=== PATIENT | male | born 1950 | race Caucasian/White ===

== ENCOUNTER 2025-04-04 10:30 | Emergency (ER) | payer MEDICARE, SELFPAY ==
--- OUTSIDE RECORDS SUMMARY | 2016-08-20 05:55 | XMS_ITS | Continuity of Care Document ---
Author Organization [facility] Address [address] [facility] [address] [place] [address] Phone Care Team Providers Care Customs Investigator Name Role Phone Len Morrissey MD Unavailable Unavailable Allergies, Adverse Reactions, Alerts Substance Reaction Status Criticality PENICILLIN Active No Information Medications Medication Instructions Dosage Effective Dates (start - stop) Status Comments pravastatin 20 mg tablet take 2 tablet by oral route every day 40 MG - Active Aspir-81 81 mg tablet,delayed release take 1 tablet by oral route every day - Active Lipitor 20 mg tablet take 1 tablet by or al route every day 20 MG - Active lisinopril 5 mg tablet take 1 tablet by oral route every day 5 MG - Active Procedures Procedure Date YAG PC AFTER CATARACT LASER SURGERY AFTER CATARACT LASER SURGERY EYE EXAM & TREATMENT CATARACT SURG W/IOL, 1 STAGE CATARACT SURG W/IOL, 1 STAGE NON MED NEC IOL PREOP OFFICE/OUTPATIENT VISIT, NEW OPHTHALMIC BIOMETRY OPHTHALMIC BIOMETRY Advance Directives Directive Yes / No Effective Date File Name No Information Encounters Encounter Description Practice Location Reason(s) For Visit Diagnoses Date Provider Providers Copied on Encounter [facility], [address] [facility] [address], [place], [place], [id number], [place] tel:[phone] [facility] No Information 7 Ghanshyam Harrington. [address] [facility], [address], [place], [place], [id number] , [place]. tel: [phone] Referring Provider: Len Espinal, [address], [place], [address] . tel:[phone] [facility], [address] [place] [address], [id number], tel:[phone] [facility] No Information 7 Ghanshyam Harrington. [address], [address], [place], [place], [id number] , [place]. tel:[phone] Referring Provider: Len Espinal, [address], [place], [address] . tel:[phone] [facility], [address] [place] [address], [id number], tel:[phone] [facility] blurry vision (chief complaint) Tear film insufficiency of bilateral lacrimal glandsPure hypercholeste rolemiaPresen ce of intraocular lensPresbyopi aHypertension Other secondary cataract, bilateralDerm atochalasis of right upper eyelidDermato chalasis of left upper eyelid 7 Ghanshyam Harrington. [address], [address], [place], [place], [id number] , [place]. tel:[phone] Referring Provider: Len Espinal, [address], [place], [address] . tel:[phone] [facility], [address] [place] [address], [id number], [place] tel:[phone] [facility] No Information 4 Ghanshyam Harrington. [address], [address], [place], [place], [id number] , [place]. tel:[phone] Referring Provider: Len Espinal, [address], [place], [address] . tel:[phone] [facility], [address] [place] [address], [id number], [place] tel:[phone] [facility] [place] No Information Ghanshyam Harrington. [address], [address], [place], [place], [address] , . tel:[phone] Referring Provider: Len Espinal, [address], [place], [address] . tel:[phone] [facility], [address] [place] [address], [id number], tel:[phone] [facility] No Information 4 Ghanshyam Harrington. [address], [address], [place], [place], [id number] , . tel:[phone] Referring Provider: Len Espinal, [address], [place], [address] . tel:[phone] OFFICE/OUTPA TIENT VISIT, [facility], [address] [place] [address], [place], [place], [id number], tel:[phone] [facility] No Information 4 Ghanshyam Harrington. [address], [address], [place], [place], [id number] , . tel:[phone] Referring Provider: Len Espinal, [address], [place], [address] . tel:[phone] Family History Family Member Type Diagnosis Age At Onset No Information Payers Payer name Insurance type Covered democrat ID Authoriza tion(s) Medicare Complete Advantage [facility] [id number] Social History Type Description Quantity Date Captured Comments Sex Male Smoking Status No Information Chief Complaint And Reason For Visit No Information Reason For Referral Reason For Referral No Information History Of Present Illness Encounter Date Complaint History Of Prese nt Illness blurry vision Patient presents for blurry VA OU OS>OD gradually worsening over the last 6 months. The symptom is constant and the condition is moderate. Patient states he is looking through a constant fog. Patient referred by Dr. Waller out of [facility] for YAG PC evaluation OU. Functional Status Date Functional Assessmen t No Information Instructions Date Instruction Additional Infor rose RTO prn Related to Hyper tension Impression/Plan - No evidence of hypertensive retinopathy. Will continue to observe. Related to Hypertension Impression/Plan - Di scussed diagnosis in detail with patient. Discussed treatment options with patient. Schedule Yag OU OS then OD. Related to Other secondary cataract, bilateral Impression/Plan - Di scussed diagnosis in detail with patient. No treatment is required at this time. Will continue to observe condition and or symptoms. Related to Dermatochalasis of right upper eyelid Impression/Plan - Di scussed diagnosis in detail with patient. No treatment is required at this time. Will continue to observe condition and or symptoms. Related to Dermatochalasis of left upper eyelid Impression/Plan - Di scussed diagnosis in detail with patient. Discussed treatment options with patient. Patient instructed to use artificial tears as needed. Will continue to observe condition and or symptoms. Related to Tear film insufficiency of bilateral lacrimal glands Impression/Plan Related to Hyper tension Follow up - RTO prn Related to H ypertension Impression/Plan - Per Dr. Ira jorge Related to Presbyopia Impression/Plan - St able. Will continue to observe. Related to Presence of intraocular lens Impression/Plan - Co ntinue care with PCP. Related to Pure hypercholesterolemia Assessments Type Assessment Date No Information Patient Care Teams Name Effective Dates (start - stop) Status Members No Information
--- OUTSIDE RECORDS SUMMARY | 2025-04-03 09:00 | XMS_ITS | Encounter Summary ---
Author Organization [facility] Address [address] [place] [address] Care Team Providers Care Therapeutic Recreation Assistant Name Role Phone Hakeem Connelly MD Primary Care Provider [phone] Reason for Referral * Eval and Treat (5-7 Days) - Open Specialty Diagnoses / Procedures Referred By Contac t Referred To Contact Hematology and Oncology Diagnoses Iron deficiency anemia, unspecified iron deficiency anemia type Procedures IL OFFICE/OUTPATIENT ESTABLISHED MOD MDM 30 MIN IL OFFICE/OUTPATIENT NEW MODERATE MDM 45 MINUTES Hakeem Connelly MD [address] [place] [address] Phone: tel: fax: Cain Mcduffie DO [address] [place] [address] Phone: tel: fax: Referral ID Status Reason Start Date Expiration Date Visits Re quested Visits Authorized [id number] Open 04/03/2025 04/03/2026 1 1 * Eval and Treat (5-7 Days) - Open Specialty Diagnoses / Procedures Referred By Contac t Referred To Contact Cardiovascular Disease / Cardiology Diagnoses Syncope, unspecified syncope type Procedures IL OFFICE/OUTPATIENT ESTABLISHED MOD MDM 30 MIN IL OFFICE/OUTPATIENT NEW MODERATE MDM 45 MINUTES Hakeem Connelly MD [address] [place] [address] Phone: tel: fax: Cliff Contreras MD [address] [place] [address] Phone: tel: fax: Referral ID Status Reason Start Date Expiration Date V isits Requested Visits Authorized [id number] Open CRS to Schedule 04/03/2025 04/03/2026 1 1 Reason for Visit * Reason Comments ER Follow Up Pt passed out a few times before he went to the ER. , states he was having dizziness, chest tightness, so on 03/26 he went to the ER Encounter Details Date Type Department Care Team (Late st Contact Info) Description 04/03/2025 9:00 AM CDT Office Visit [facility] Internal Medicine - [address] [place] [address] Hakeem Connelly MD [address] [place] [address] Syncope, unspecified syncope type (Primary Dx); Crohn's disease of small intestine with complication; Iron deficiency anemia, unspecified iron deficiency anemia type Social History Tobacco Use Types Packs/Day Years Used Date Smoking Tobacco: Never Smokeless Tobacco: Never Alcohol Use Standard Drinks/Week Comments Yes 0 (1 standard drink = 0.6 oz pur e alcohol) very little Food Insecurity Answer Date Recorded Do you find you are eating l ess than you should because you can t pay for food? No 03/26/2025 Transportation Needs Answer Date Record ed Have you gone without health care because you didn t have a way to get there? Or worry about transportation for future doctor visits, mixing picker tender medication, etc.? No 2024 Housing Stability Answer Date Recorded Do you worry you won t have a steady place to sleep or struggle to pay rent or mortgage? No 03/26/2025 Utility Needs Answer Date Recorded Do you have difficulty payin g for utility costs (electric, water or gas bills)? No 03/26/2025 Medication Needs Answer Date Recorded Have you skipped taking medi cation due to cost or worry you can t afford new medications? No 03/26/2025 Feeling Safe Answer Date Recorded Are you in a relationship wi th someone who hurts you emotionally and/or physically? No 03/26/2025 Food Insecurity Answer Date Recorded Patient needs follow up regardin 2024 Transportation Needs Answer Date Record ed Patient needs follow up regardin 2024 Housing Stability Answer Date Recorded Social/Environmental Concerns No concerns Utility Needs Answer Date Recorded Patient needs follow up regardin 2024 Sex and Gender Information Value Date Recorded Sex Assigned at Not on file Legal Sex Male 4:59 AM CLOUD DEVELOPER Gender Identity Not on file Sexual Orientation Not on file Occupation Industry Job Start Date Job End Date Not on file Not on file Not on file Not on file retired Not on file Not on file Not on file documented as of this encounter Last Filed Vital Signs Vital Sign Reading Time Taken Comments Blood Pressure 124/60 04/03/2025 8:47 AM CDT Pulse 76 04/03/2025 8:47 AM CDT Temperature - - Respiratory Rate - - Oxygen Saturation 98% 04/03/2025 8:47 AM CDT Inhaled Oxygen Concentration - - Weight 97.5 kg (215 lb) 04/03/2025 8:47 AM CDT Height 177.8 cm (5' 10 ) 04/03/2025 8:47 AM CDT Body Mass Index 30.85 04/03/2025 8:47 AM CDT documented in this encounter Progress Notes * Hakeem Connelly MD - 04/03/2025 9:02 AM CDT SUBJECTIVE: Abdoul Patel is a 74 y.o. male here for follow up of Chief Complaint Patient presents with ER Follow Up Pt passed out a few times before he went to the ER. , states he was having dizziness, chest tightness, so on 03/26 he went to the ER HPI: 1.recurrent syncope: 3rd episode, no documentation of sinus pause or bradycardia. Hgb is low despite iron, BP at goal, no BB. 2.iron def anemia: on iron BID for 6 months, still anemic. Poor absorption from Crohns?? Bone marrow issue? Hematology consult Review of Systems History obtained from the patient General: negative for weight changes, fever Psychological: negative for anxiety or depressive symptoms Ophthalmic: negative for visual changes, ocular redness or discharge ENT: negative for nasal congestion, drainage or bleeding, sore throat, dysphagia or ear pain Allergy and Immunology: negative for itchy eyes, nasal congestion, sneezing, lymphadenopathy Hematological and Lymphatic: negative for swollen glands or abnormal bleeding Endocrine: negative for polyuria/polydipsia or new changes in weight Breast: negative for breast lumps or pain Respiratory: negative for cough, shortness of breath, or wheezing Cardiovascular: negative for chest pain or dyspnea on exertion Vascular: neg for edema Gastrointestinal: negative for reflux, abdominal pain, change in bowel habits, or black or bloody stools Genito-Urinary: negative for dysuria, trouble voiding, or hematuria Musculoskeletal: neg for joint pain, negative for back pain, neck pain or joint pain. Neurological: negative for TIA or stroke symptoms Dermatological: negative for skin rashes or unusual skin lesions Problem, Medication, Allergy, Past Medical, Family, Surgical and Social Histories were reviewed. Please review in electronic medical records. Current Outpatient Medications on File Prior to Visit Medication Sig Dispense Refill atorvastatin (LIPITOR) 40 mg tablet Take 1 Tablet (40 mg) by mouth daily. 100 Tablet 3 sertraline (ZOLOFT) 100 mg tablet Take 1 Tablet (100 mg) by mouth daily. 100 Tablet 3 tamsulosin (FLOMAX) 0.4 mg capsule Take 1 Capsule (0.4 mg) by mouth daily. 100 Capsule 3 lisinopriL (PRINIVIL) 10 mg tablet TAKE 1 TABLET BY MOUTH DAILY 100 Tablet 2 iron,carb/vit C/vit B12/folic (IRON 100 PLUS ORAL) Take by mouth. acetaminophen-codeine (TYLENOL #3) 300-30 mg tablet Take 1 Tablet by mouth every 6 hours as needed for Pain. aspirin (ECOTRIN EC) 81 mg Tablet, Delayed Release (E.C.) Take 1 Tablet (81 mg) by mouth daily. uymcgcahwvpcp-smisswdf-xozjvt (CENTRUM SILVER) Tablet Take 1 Tablet by mouth daily. acetaminophen ER 650 mg tablet,extended release Take 650 mg by mouth every 6 hours as needed for Pain. No current facility-administered medications on file prior to visit. Allergies Allergen Reactions Penicillins Unknown Past Medical History: Diagnosis Date Anemia Chest pain 09/23/2022 Coronary artery disease Hearing loss HTN (hypertension) Hyperlipidemia Obstructive sleep apnea uses cpap Auto 8-18 01/12/25 Nasal pillows Post-operative nausea and vomiting Family History Problem Relation Name Age of Onset Heart Disease Father Heart Attack Father 57 of [place] No Known Problems Mother Past Surgical History: Procedure Laterality Date HX COLONOSCOPY W/ BIOPSIES N/A 10/12/2022 COLONOSCOPY WITH BIOPSY performed by Hernandez Handley MD at [facility] HX COLONOSCOPY W/ BIOPSIES N/A 09/26/2023 COLONOSCOPY WITH BIOPSY performed by Hernandez Handley MD at [facility] HX COLONOSCOPY W/ BIOPSIES N/A 01/14/2025 COLONOSCOPY WITH BIOPSY performed by Chayito Rick MBBS at [facility] 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 HX HEART CATHETERIZATION 2011 No stents HX HERNIA REPAIR 02/17/2012 Umbilical--Dr Heaton HX KNEE SURGERY HX PTCA IL CATH PLMT L HRT & ARTS W/NJX & ANGIO IMG S&I N/A 05/11/2024 Left heart cath performed by Saroj Jones MD at [facility] INVASIVE CARDIOLOGY IL COLONOSCOPY FLX DX W/COLLJ SPEC WHEN PFRMD N/A 02/09/2022 COLONOSCOPY performed by Hernandez Handley MD at [facility] IL COLSC FLX W/RMVL OF TUMOR POLYP LESION SNARE TQ N/A 02/09/2016 COLONOSCOPY WITH POLYPECTOMY performed by Caroline Anna MD at [facility] OR [address] IL EGD TRANSORAL BIOPSY SINGLE/MULTIPLE N/A 09/23/2022 ESOPHAGOGASTRODUODENOSCOPY WITH BIOPSY performed by Hernandez Handley MD at [facility] IL EGD TRANSORAL BIOPSY SINGLE/MULTIPLE N/A 01/14/2025 ESOPHAGOGASTRODUODENOSCOPY WITH BIOPSY performed by Chayito Rick MBBS at [facility] IL ENDOSCOPY UPPER SMALL INTESTINE N/A 10/12/2022 SMALL BOWEL ENTEROSCOPY performed by Hernandez Handley MD at [facility] IL REPAIR FIRST ABDOMINAL WALL HERNIA N/A 11/24/2020 HERNIA INCISIONAL REPAIR performed by Darrius Song MD at [facility] OR OBJECTIVE: BP 124/60 Pulse 76 Ht 5' 10 (1.778 m) Wt 97.5 kg (215 lb) SpO2 98% BMI 30.85 kg/m?? General Appearance: alert, in no distress, cooperative, Head: atraumatic, Normocephalic, without obvious abnormality, Eyes: conjunctivae/corneas clear. PERRL, EOM's intact., Ears: normal TM's and external ear canals bilaterally Nose: Nares normal. Septum midline. Mucosa without anomalies. No drainage or sinus tenderness., Throat: Lips, mucosa (moist), and tongue within normal limits. Neck: supple, symmetrical, trachea midline, no adenopathy, thyroid: not enlarged, symmetric, no tenderness/mass/nodules, no carotid bruit and no JVD, Heart: regular rate and rhythm, S1, S2 normal, no murmur, click, rub or gallop, Chest Wall: no tenderness, Lungs: clear to auscultation bilaterally, normal respiratory effort, Abdomen: Soft, non-tender. Bowel sounds normal. No masses, no organomegaly., Back: symmetric, no curvature. ROM normal. No CVA tenderness. Extremities: extremities normal, atraumatic, no cyanosis or edema Pulses: present 1+ Neurologic: Alert and oriented X 3, normal strength and tone. Normal coordination and gait, Skin: Skin color, texture, turgor normal. No rashes or lesions Lymph Nodes: Cervical, supraclavicular, and axillary nodes normal. Diagnostics: Lab Results Component Value Date WBC 9.1 03/26/2025 HGB 9.2 (L) 03/26/2025 HCT 30.2 (L) 03/26/2025 PLT 275 03/26/2025 MCV 90.7 03/26/2025 Lab Results Component Value Date NA 134 (L) 03/26/2025 K 4.4 03/26/2025 CL 101 03/26/2025 CO2 21 (L) 03/26/2025 CA 9.4 03/26/2025 BUN 17 03/26/2025 CREAT 1.14 03/26/2025 GLUCOSE 117 (H) 03/26/2025 TOTALPROTEIN 6.7 02/25/2025 TOTALPROTEIN 5.7 (L) 01/14/2025 ALBUMIN 4.4 02/25/2025 ALBUMIN 3.6 01/14/2025 BILITOTAL 0.4 02/25/2025 ALKPHOS 69 02/25/2025 ALKPHOS 53 01/14/2025 AST 21 02/25/2025 ALT 22 02/25/2025 ANIONGAP 12 03/26/2025 BCRATIO SEE NOTE: 02/25/2025 Lab Results Component Value Date CHOLTOT 123 02/25/2025 CHOLTOT 91 09/23/2022 HDL 52 02/25/2025 HDL 44 09/23/2022 LDLCALC 48 02/25/2025 LDLCALC 25 09/23/2022 TRIGLYCERIDE 143 02/25/2025 TRIGLYCERIDE 111 09/23/2022 Lab Results Component Value Date HGBA1C 6.0 (H) 02/29/2024 Lab Results Component Value Date TSH 6.35 (H) 08/20/2024 TSH 2.94 09/23/2022 ASSESSMENT: ICD-10-CM ICD-9-CM 1. Syncope, unspecified syncope type R55 780.2 2. Crohn's disease of small intestine with complication K50.019 555.0 3. Iron deficiency anemia, unspecified iron deficiency anemia type D50.9 280.9 PLAN: 1.refer to Diane 2.on entevo very well controlled 3.on 325 mg iron OTC BID, ferritn 11 and hgb 9.2 Follow up in 3 months Hakeem Connelly MD documented in this encounter Plan of Treatment Upcoming Encounters Date Type Department Care Team (Latest Contact Info) Description 04/08/2025 10:00 AM CDT Hospital Encounter [facility] [address] [place] [address] Hernandez Handley MD [address] [place] [address] 11, Mob Crohn's disease of colon without complication ([facility]/HCC) 05/28/2025 9:40 AM CLOUD DEVELOPER Appointment [facility] Internal Medicine - [address] [place] [address] Hakeem Connelly MD [address] [place] [address] 06/06/2025 10:00 AM CLOUD DEVELOPER Office Visit [facility] G[facility]enterology - [address] [place] [address] Leighton Chaudhary FNP [address] [place] [address] 08/27/2025 10:40 AM CDT Appointment [facility] Internal Medicine - [address] [place] [address] Hakeem Connelly MD [address] [place] [address] 09/30/2025 10:30 AM CDT Office Visit [facility] [place] [address] [place] [phone] Cliff Contreras MD [address] [place] [address] 11/14/2025 10:45 AM CDT [facility] Visit [facility] Pulmonology and Sleep Med - [address] [place] [address] Tevin Gómez MD [address] [place] [address] Scheduled Referrals Name Type Priority Associated Diagnoses Orde r Schedule AMB REFERRAL TO CARDIOLOGY Outpatient Referral Routine Syncope, unspecified syncope type Ordered: 04/03/2025 AMB REFERRAL TO ONCOLOGY Outpatient Referral Routine Iron deficiency anemia, unspecified iron deficiency anemia type Ordered: 04/03/2025 documented as of this encounter Visit Diagnoses Diagnosis Syncope, unspecified syncope type- Primary Crohn's disease of small intestine with complication Regional enteritis of small intestine Iron deficiency anemia, unspecified iron deficiency anemia type documented in this encounter Care Teams Therapeutic Recreation Assistant Relationship Specialty Start Date End Date Hakeem Connelly MD [address] [place] [address] PCP - General 12/27/02 documented as of this encounter
[2025-04-04] VITALS (13 sets, daily range): BP systolic 96–133; BP diastolic 47–78; PULSE 55–62; RESP 14–17; TEMP 36.6–36.8; O2SAT 96–100; BMI 30.2
--- NOTE | 2025-04-04 10:43 | XR_ITS ---
WS: [id number] XR chest 1V portable [id number] REASON FOR EXAM: Syncope FINDINGS: Mild tortuosity and ectasia of the ascending and descending thoracic aorta and aortic arch. The heart is at the upper limits of normal. Calcified granulomatous disease bilaterally. No acute pulmonary parenchymal or pleural abnormality is identified. (There is a focal band of lucency projected over the medial left hemidiaphragm and lower left heart which is felt to represent artifact.) Moderate degenerative spondylosis in the thoracic spine. 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 XR/XR chest 1V portable [id number] IMPRESSION: No acute chest abnormality.
[2025-04-04 11:01] LABS: Hematocrit 24.5 % (37-53); Hemoglobin 7.30 g/dL (11.27-16.99); Mean Corpuscular HGB Conc 29.8 g/dL (30-55); Mean Corpuscular Hemoglobin 27.5 pg (27-33); Mean Corpuscular Volume 92.5 fl (82-101); Nucleated Red Blood Cells % 0 %; Platelet Count 203 10^3/cmm (157-399); Red Blood Count 2.65 10^6/uL (3.85-5.65); White Blood Count 8.53 10^3/uL (3.29-11.43)
--- NOTE | 2025-04-04 11:08 | ECG_ITS ---
[facility] Test Date: 2025-04-04 Pat Name: Demetris Patel Department: Room: Gender: Male Pulp Drier: : 1950 Requested By: Yogesh Norris Order Number: [id number] Damon MD: Tong Paul M.D. Measurements Intervals [place] Rate: 57 P: 75 [place]: 180 QRS: 9 QRSD: 89 T: 0 QT: 428 QTc: 419 Interpretive Statements SINUS BRADYCARDIA No previous ECG available for comparison Electronically Signed On 04-06-2025 12:03:35 CDT by Tong Paul M.D. [email or web address]
[2025-04-04 11:19] LABS: Troponin(5th) Baseline 17 ng/L (0-15)
[2025-04-04 11:22] LABS: Alanine Aminotransferase 15 U/L (0-41); Albumin Level 4.0 g/dL (3.5-5.2); Alkaline Phosphatase 66 U/L (40-130); Anion Gap 19.5 (5-19); Aspartate Amino Transferase 16 U/L (0-40); Blood Urea Nitrogen 25 mg/dL (8-23); Calcium 8.8 mg/dL (8.5-10.5); Carbon Dioxide 19 mmol/L (22-29); Chloride 102 mmol/L (98-107); Creatinine Clr Calc Pharmacy 68.4027; Globulin 1.7 g/dL (1.3-4.6); Glucose 128 mg/dL (65-115); Osmolality Calculated 288 mOsm/kg (285-295); Potassium 4.5 mmol/L (3.5-5.1); Sodium 136 mmol/L (136-145); Total Protein 5.7 g/dL (6.6-8.7)
--- OUTSIDE RECORDS SUMMARY | 2025-04-04 11:37 | XMS_ITS | Encounter Summary ---
Author Organization [employer] Address [address] [place] [address] Care Team Providers Care Nitroglycerin Distributor Name Role Phone Hakeem Connelly MD Primary Care Provider [phone] Encounter Details Date Type Department Care Team (Late st Contact Info) Description 04/02/2025 External Device Data [facility] ABSTRACTION Provider, Abstract NO ADDRESS ON FILE Social History Tobacco Use Types Packs/Day Years [...] worry about transportation for future doctor visits, berry picker medication, etc.? No 2024 Housing Stability Answer [...] on file Legal Sex Male 4:59 AM CASINO RUNNER Gender Identity Not on file Sexual Orientation Not on file Occupation Industry Job Start Date Job End Date Not on file Not on file Not on file Not on file retired Not on file Not on file Not on file documented as of this encounter Plan of Treatment Upcoming Encounters Date Type Department Care Team (Latest Contact Info) Description 04/08/2025 10:00 AM CDT Hospital Encounter [facility] [address] [place] [address] Hernandez Handley MD [address] [place] [address] Mob Crohn's disease of colon without complication ([facility]) 05/28/2025 9:40 AM CASINO RUNNER Appointment [facility] Internal Medicine - [address] [place] [address] Hakeem Connelly MD [address] [place] [address] 06/06/2025 10:00 AM CASINO RUNNER Office Visit [facility] Gastroenterology - [address] [place] [address] Leighton Chaudhary FNP [address] [place] [address] 08/27/2025 10:40 AM CDT Appointment [facility] Internal Medicine - [address] [place] [address] Hakeem Connelly MD [address] [place] [address] 09/30/2025 10:30 AM CDT Office Visit [facility] Heart and Vascular - [place] [address] [place] [address] Cliff Contreras MD [address] [place] [address] 11/14/2025 10:45 AM CDT Office Visit [facility] Pulmonology and Sleep Med - [address] [place] [address] Tevin Gómez MD [address] [place] [address] documented as of this encounter Visit Diagnoses Not on filedocumented in this encounter Care Teams Nitroglycerin Distributor Relationship Specialty Start Date End Date Hakeem Connelly MD [address] [place] [address] PCP - General 12/27/02 documented as of this encounter
--- OUTSIDE RECORDS SUMMARY | 2025-04-04 11:37 | XMS_ITS | Encounter Summary ---
Author Organization [facility] Address 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 Gender Identity Not on file Sexual Orientation Not on file documented as of this encounter Plan of Treatment Upcoming Encounters Date Type Department Care Team (Latest Contact Info) Description 04/08/2025 10:00 AM CDT Hospital Encounter [facility] [address] [place] [address] Hernandez Handley MD [address] [place] [address] 11, Mob Crohn's disease of colon without complication (CMS/HCC) 05/28/2025 9:40 AM PRESSURE TESTER OPERATOR Appointment [facility] Internal Medicine - [address] [place] [address] Hakeem Connelly MD [address] [place] [address] 06/06/2025 10:00 AM PRESSURE TESTER OPERATOR Office Visit [facility] Gastroenterology - [address] [place] [address] Leighton Chaudhary FNP [address] [place] [address] 08/27/2025 10:40 AM CDT Appointment [facility] Internal Medicine - [address] [place] [address] Hakeem Connelly MD [address] [place] [address] 09/30/2025 10:30 AM CDT Office Visit [facility] Heart and Vascular - [place] [address] [phone] Cliff Contreras MD [address] [place] [address] 11/14/2025 10:45 AM CDT Office Visit [facility] Pulmonology and Sleep Med - [address] [place] [address] Tevin Gómez MD [address] [place] [address] documented as of this encounter Visit Diagnoses Diagnosis Derangement of lateral meniscus, unspecified- Primary documented in this encounter Additional Health Concerns Infection Onset Date Last Indicated Resolved Time R/O COVID-19 03/07/2020 03/07/2020 03/08/2020 3:00 PM CDT R/O COVID-19 09/23/2022 09/23/2022 09/23/2022 9:58 AM CDT documented as of this encounter Care Teams Collections And Archives Director Relationship Specialty Start Date End Date Hakeem Connelly MD [address] [place] [address] PCP - General 12/27/02 documented as of this encounter
--- OUTSIDE RECORDS SUMMARY | 2025-04-04 11:37 | XMS_ITS | Clinical Summary ---
Author Organization [facility] [employer] Address [address] [place] [address] Care Team Providers Care Supervisor [employer] Name Role Phone Hakeem Connelly MD Primary Care Provider [phone] Source Comments [facility] [employer],non-owned Affiliates and Associated Physician Practices is amultiple site organization consisting of ambulatory clinics and hospital sitesin [place], [place], [place]. This disclosure is being madepursuant to the Care Everywhere program and may not contain all information available regarding this patient. Last updated 18.[facility] [employer] Allergies Active Allergy Reactions Criticality Noted Date Comments Penicillins Unknown 09/27/2011 Medications * Be aware that medications may not be up to date on this document. Alwaysverify current medications with the patient. pravastatin (PRAVACHOL) 20 MG tablet Take 20 mg by mouth at bedtime. Active aspirin EC (ECOTRIN) 81 MG tablet Take 81 mg by mouth once daily. Active lisinopril-hydro chlorothiazide (PRINZIDE; ZESTORETIC) 20-12.5 MG tablet Take 1 Tab by mouth once daily. Active naproxen (NAPROSYN) 250 MG tablet Take 500 mg by mouth once daily. Active multivitamin daily (THERAGRAN) tablet Take 1 Tab by mouth daily with food. 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 Gender Identity Not on file Sexual Orientation Not on file Last Filed Vital Signs Vital Sign Reading Time Taken Comments Blood Pressure 116/68 09/28/2011 3:15 PM CDT Pulse 69 09/28/2011 3:15 PM CDT Temperature 37.4 C (99.3 F) 09/28/2011 11:17 AM CDT Respiratory Rate 15 09/28/2011 3:15 PM CDT Oxygen Saturation 98% 09/28/2011 3:15 PM CDT Inhaled Oxygen Concentration - - Weight 102.1 kg (225 lb) 09/27/2011 12:21 PM CDT Height 177.8 cm (5' 10 ) 09/27/2011 12:21 PM CDT Body Mass Index 32.28 09/27/2011 12:21 PM CDT Plan of Treatment Health Maintenance Due Date Last Done Comments COLOGUARD (AGES 45-75) - COL ON CA SCREENING 1950 COLON MONITORING 1950 COLONOSCOPY - COLON CA SCREENING 1950 CT COLONOGRAPHY - COLON CA SCREENING 1950 Colorectal Cancer Screening 1950 FIT - COLON CA SCREENING 1950 FLEX SIG - COLON CA SCREENING 1950 HEPATITIS C SCREENING 10/08/1968 DTAP/TDAP/TD VACCINES (1 - Tdap) 1969 PNEUMOCOCCAL VACCINE 50+ (1 of 1 - PCV) 2000 ZOSTER VACCINE (1 of 2) 2000 DEPRESSION SCREENING 06/20/2024 COVID-19 VACCINE (1 - 2023-2 5 season) 2025 INFLUENZA VACCINE (#1) 2025 Respiratory Syncytial Virus (RSV) Vaccine Pt: or over 60 yrs (1 - 1-dose 75+ series) 2025 HEPATITIS B VACCINE Aged Out No longe r eligible based on patient's age to complete this topic HIB VACCINE Aged Out No longer eligi ble based on patient's age to complete this topic HPV VACCINE Aged Out No longer eligi ble based on patient's age to complete this topic MENINGOCOCCAL (Group B) VACC INE SHARED DECISION-MAKING Aged Out No longer eligibl e based on patient's age to complete this topic MENINGOCOCCAL GROUPS A/C/Y/W VACCINE Aged Out No longer eligible b ased on patient's age to complete this topic Care Teams Supervisor [employer] Relationship Specialty Start Date End Date Hakeem Connelly MD [address] [place] [address] PCP - General 09/27/11
--- OUTSIDE RECORDS SUMMARY | 2025-04-04 11:37 | XMS_ITS | Encounter Summary ---
Author Organization [facility] Address [address] [place] [address] Care Team Providers Care Boilermaker Welder Name Role Phone Hakeem Connelly MD Primary Care Provider [phone] Reason for Visit * Reason Comments Hospital Follow Up Encounter Details Date Type Department Care Team (Late st Contact Info) Description 03/28/2025 Telephone [facility] Internal Medicine - [address] [place] [address] Hakeem Connelly MD [address] [place] [address] Hospital Follow Up Social History Tobacco Use Types Packs/Day Years [...] worry about transportation for future doctor visits, waste picker medication, etc.? 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 Topic: Established Patient Care >> Mar 28, 2025 3:36 PM Chriss Parsons wrote: Is the patient established with a [facility] provider? Yes, select appropriate option in Discharge Facility SmartList Caller Name: Abdoul Patel Callback Number: [phone] (mobile) Call Notes: [facility] ER discharge 03/26 Patient is Rising Risk Where was the patient discharged from? Emergency Department (ED/ER) Is there availability to schedule the patient within 5 calendar days of discharge? No, in person appointment not available or call came after 5 days of discharge documented in this encounter Plan of Treatment Upcoming Encounters Date Type Department Care Team (Latest Contact Info) Description 04/08/2025 10:00 AM CDT Hospital Encounter [facility] [address] [place] [address] Hernandez Handley MD [address] [place] [address] 11, Mob Crohn's disease of colon without complication ([facility]/HCC) 05/28/2025 9:40 AM INVESTOR RELATIONS COORDINATOR Appointment [facility] Internal Medicine - [address] [place] [address] Hakeem Connelly MD [address] [place] [address] 06/06/2025 10:00 AM INVESTOR RELATIONS COORDINATOR Office Visit [facility] Gastroenterology - [address] [place] [address] Leighton Chaudhary FNP [address] [place] [address] 08/27/2025 10:40 AM CDT Appointment [facility] Internal Medicine - [address] [place] [address] Hakeem Connelly MD [address] [place] [address] 09/30/2025 10:30 AM CDT Office Visit [facility] Heart and Vascular - [place] [address] [place] [phone] Cliff Contreras MD [address] [place] [address] 11/14/2025 10:45 AM CDT Office Visit [facility] Pulmonology and Sleep Med - [address] [place] [address] Tevin Gómez MD [address] [place] [address] documented as of this encounter Visit Diagnoses Not on filedocumented in this encounter Care Teams Boilermaker Welder Relationship Specialty Start Date End Date Hakeem Connelly MD [address] [place] [address] PCP - General 12/27/02 documented as of this encounter
--- OUTSIDE RECORDS SUMMARY | 2025-04-04 11:37 | XMS_ITS | Clinical Summary ---
Author Organization [facility] First Address [address] [place] [address] Care Team Providers Care Business Practices Supervisor Name Role Phone Hakeem Connelly MD Primary Care Provider [phone] Allergies Active Allergy Reactions Criticality Noted Date Comments Penicillins Unknown 10/12/2012 Medications multivitamins-mine rals-lutein (CENTRUM SILVER) Tablet Take 1 Tablet by mouth daily. Active acetaminophen ER 650 mg tablet,extended release Take 650 mg by mouth every 6 hours as needed for Pain. 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 4 Active acetaminophen-code ine (TYLENOL #3) 300-30 mg tablet Take 1 Tablet by mouth every 6 hours as needed for Pain. 4 Active iron,carb/vit C/vit B12/folic (IRON 100 PLUS ORAL) Take by mouth. Active lisinopriL (PRINIVIL) 10 mg tabletIndications: Primary hypertension TAKE 1 TABLET BY MOUTH DAILY 100 Tablet 2 5 Active atorvastatin (LIPITOR) 40 mg tabletIndications: Mixed hyperlipidemia Take 1 Tablet (40 mg) by mouth daily. 100 Tablet 3 5 Active sertraline (ZOLOFT) 100 mg tabletIndications: Major depressive disorder with single episode, in partial remission Take 1 Tablet (100 mg) by mouth daily. 100 Tablet 3 5 Active tamsulosin (FLOMAX) 0.4 mg capsuleIndications :Benign prostatic hyperplasia without lower urinary tract symptoms Take 1 Capsule (0.4 mg) by mouth daily. 100 Capsule 3 5 Active atorvastatin (LIPITOR) 40 mg tabletIndications: Mixed hyperlipidemia Take 1 Tablet (40 mg) by mouth daily. 100 Tablet 2 5 03/11/20 25 Discontin ued(Reord er) sertraline (ZOLOFT) 100 mg tabletIndications: Major depressive disorder with single episode, in partial remission Take 1 Tablet (100 mg) by mouth daily. 100 Tablet 2 5 03/11/20 25 Discontin ued(Reord er) tamsulosin (FLOMAX) 0.4 mg capsuleIndications :Benign prostatic hyperplasia without lower urinary tract symptoms Take 1 Capsule (0.4 mg) by mouth daily. 100 Capsule 3 5 03/11/20 25 Discontin ued(Reord er) Active Problems Patient Care Coordination No te Formatting of this note migh t be different from the original. GI - Dr Hernandez Handley Crawler Dragline Operator Dr. Cliff Pena Problem Noted Date Diagnosed Date Syncope 01/12/2025 Guaiac + stool 01/12/2025 Crohn's disease of colon without complication Prediabetes 04/06/2024 Acute upper GI bleeding 09/24/2022 Acute blood loss anemia 09/24/2022 Abdominal pain 09/23/2022 Melena 09/23/2022 Chest pain 09/23/2022 Symptomatic anemia 09/23/2022 Leukocytosis 09/23/2022 Depressive disorder 01/28/2022 History of coronary artery stent placement 01/28 Hypertension 01/28/2022 Hyperlipidemia 01/28/2022 Prostatism 01/28/2022 Major depression in partial remission 01/03/2022 Overview (01/03/2022): 12-30-21 ambulatory query kh Asymmetric SNHL (sensorineural hearing loss) HARVEY on CPAP 11/09/2019 Personal history of colonic polyps 02/09/2016 Obesity (BMI 35.0-39.9) without comorbidity 08/18 Dyslipidemia 05/30/2015 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 12/27/2014 Overview (12/31/2021): PCI LAD MARK 01/201512-30-21 query kh Arteriosclerosis of coronary artery 11/21/2013 Essential hypertension, benign 09/15/2011 Diverticulosis of large intestine 07/27/2011 Special screening for malignant neoplasm of pros ramirez 07/27/2011 Actinic keratosis 02/09/2010 Resolved Problems Problem Noted Date Diagnosed Date Resolved Date Postsurgical aortocoronary b ypass status 3V CABG [TAYLOR--> LAD,SVG --> PDA -->RPLV] - 05/02/2008 11/29/2012 11/21/2013 Aortic stenosis, moderate 11/29/2012 Aortic regurgitation 11/29/2012 014 Family history of ischemic heart disease 11/29/2012 12/19/2013 Coronary atherosclerosis of [place] coronary artery (Stent: Mid RCA, MARK) - 08/18/2011 06/16/2012 11/21/2013 Routine general medical exam ination at a health care facility 07/16/2010 04/21/2016 Diverticulitis of colon 07/03/200909/18 Encounters Date Type Department Care Team Description 5 9:00 AM CDT Office Visit [facility] Internal Medicine - [address] [place] [phone] Hakeem Connelly MD Syncope, unspecified syncope type (Primary Dx); Crohn's disease of small intestine with complication; Iron deficiency anemia, unspecified iron deficiency anemia type 5 External Device Data STL ABSTRACTION Provider, Abstract 5 External Device Data STL ABSTRACTION Provider, Abstract 5 External Device Data STL ABSTRACTION Provider, Abstract 5 Telephone [facility] Internal Medicine - [address] [place] [address] Hakeem Connelly MD Hospital Follow Up 5 10:00 AM CDT - 5 1:28 PM CDT Emergency [facility] Emergency Department [address] [place] [address] Milo Ricks MD Feeling of chest tightness (Primary Dx) Discharge Disposition: Home or Self Care 5 Travel 5 Nurse Triage [facility] Internal Medicine - [address] [place] [address] Hakeem Connelly MD 5 External Device Data STL ABSTRACTION Provider, Abstract 5 External Device Data STL ABSTRACTION Provider, Abstract 5 External Device Data STL ABSTRACTION Provider, Abstract 5 Refill [facility] Internal Medicine - [address] [place] [address] Whit Jacob, ZENON Mixed hyperlipidemia; Major depressive disorder with single episode, in partial remission; Benign prostatic hyperplasia without lower urinary tract symptoms 5 1:00 PM CDT Office Visit [facility] Gastroenterology - [address] [place] [address] Hernandez Handley MD Iron deficiency anemia, unspecified iron deficiency anemia type (Primary Dx) 5 Telephone [facility] Internal Medicine - [address] [place] [address] Hakeem Connelly MD Results 5 Results Follow-Up [facility] Internal Medicine - [address] [place] [address] Hakeem Connelly MD CBC WITH DIFFERENTIAL, COMPREHENSIVE METABOLIC PANEL, LIPID PANEL, Additional followed-up results: 2 5 10:20 AM CDT Office Visit [facility] Internal Medicine - [address] [place] [address] Hakeem Connelly MD Medicare annual wellness visit, subsequent (Primary Dx); Crohn's disease of colon without complication (CMS/HCC); Iron deficiency anemia, unspecified iron deficiency anemia type; Stage 3a chronic kidney disease (CMS/HCC); Mixed hyperlipidemia 5 Refill [facility] Heart and Vascular - [address] [place] [address] Susana Bailon PA-C Primary hypertension 5 Telephone [facility] Internal Medicine - [address] [place] [address] Hakeem Connelly MD Provider Call 5 External Device Data STL ABSTRACTION Provider, Abstract 5 External Device Data STL ABSTRACTION Provider, Abstract 5 External Device Data STL ABSTRACTION Provider, Abstract 5 9:47 AM CDT - 5 11:59 PM CDT Hospital Encounter [facility] [address] [place] [address] Hernandez Handley MD Discharge Disposition: Home or Self Care 5 Results Follow-Up [facility] Gastroenterology - [address] [place] [address] Chayito Rick MBBS PATHOLOGY 5 10:30 AM CDT Office Visit [facility] Internal Medicine - [address] [place] [address] Trixie Beebe NP Crohn's disease of colon without complication (CMS/HCC) (Primary Dx); Iron deficiency anemia, unspecified iron deficiency anemia type 5 External Device Data STL ABSTRACTION Provider, Abstract 5 External Device Data STL ABSTRACTION Provider, Abstract 5 External Device Data STL ABSTRACTION Provider, Abstract 5 Telephone [facility] Internal Medicine - [address] [place] [address] Hakeem Connelly MD Primary Care Outreach 5 3:10 PM CDT - 5 4:10 PM CDT Surgery [facility] GI Lab [address] [place] [phone] Chayito Rick MBBS ESOPHAGOGASTRODUODENOSCOPY WITH BIOPSY 5 1:29 PM CDT Anesthesia Event [facility] GI Lab [address] [place] [address] Hakeem Palacio MD Gratza, Ashley Marie, AMY 5 11:19 AM CDT - 5 4:42 PM CDT Hospital Encounter [facility] Cardiac Telemetry 5 [address] [place] [phone] Dex García, Frederick Fuentes MD Richards, Leighton Field MD Syncope Discharge Disposition: Home or Self Care 5 Travel 5 External Device Data STL ABSTRACTION Provider, Abstract from Last 3 Months Immunizations Immunization Administration Dates Next Due (ADACEL/BOOSTRIX)(10 YR UP) TDAP VACCINE, 0.5ML, IM 10/15/2022,07/16/2010 (AREXVY)(60 YR UP) RSV, MAE MBINANT, PROTEIN SUBUNIT RSVPREF, ADJUVANT RECONSTITUTED, 0.5 ML, PF 04/10/2024 ([employer])(12 YR UP) COVID-19 VACCINE - EMERGENCY USE AUTHORIZATION, MRNA, [id number](PF) 30 MCG/0.3 ML IM SUSP 09/24/2020,09/03/2020 (PNEUMOVAX 23)(50 YRS UP) PN EUMOCOCCAL POLYSACCHARIDE (PPV23) 0.5 ML, IM 05/16/2019 (PREVNAR 13)(6 WKS UP) PNEUM OCOCCAL CONJUGATE (PCV13) 0.5 ML, IM 04/21/2016 (SHINGRIX)(50 YRS UP) ZOSTER VACCINE RECOMBINANT, 0.5 ML, IM 01/23/2021 Hepatitis A Vaccine 10/15/2022 Hepatitis B Vaccine 10/15/2022 INFLUENZA VACCINE HIGH DOSE QUADRIVALENT 65 YR UP PF IM 03/27/2025,03/29/2024,03/25/2016 Influenza Seasonal Unspecifi ed Formulation IM 04/20/2022,04/02/2022,03/20/2019,03/20,03/25/2016 Influenza Vaccine High Dose 65+ Yrs IM 6 PNEUMOVAX (PPSV23) pneumococ brook polysaccharide 23-valent Vaccine 05/16/2019 PREVNAR (PCV13) pneumococcal 13-valent conjugate Vaccine 04/21/2016 Zoster Vaccine Live SQ 07/07/2020 Family History Medical History Relation Name Comments Heart Attack Father of [place] Heart Disease Father No Known Problems Mother Relation Name Status Comments Father Mother Social History Tobacco Use Types Packs/Day Years Used Date Smoking Tobacco: Never Smokeless Tobacco: Never Tobacco Cessation:Counseling Given: Not Answered Alcohol Use Standard Drinks/Week Comments Yes 0 [...] worry about transportation for future doctor visits, pick up and delivery driver medication, etc.? 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 Gender Identity Not on file Sexual Orientation Not on file Occupation Industry Job Start Date Job End Date Not on file Not on file Not on file Not on file retired Not on file Not on file Not on file Last Filed Vital Signs Vital Sign Reading Time Taken Comments Blood Pressure 124/60 04/03/2025 8:47 AM CDT Pulse 76 04/03/2025 8:47 AM CDT Temperature 37.1 C (98.7 F) 03/26/2025 10:05 AM CDT Respiratory Rate 17 03/26/2025 1:00 PM CDT Oxygen Saturation 98% 04/03/2025 8:47 AM CDT Inhaled Oxygen Concentration - - Weight 97.5 kg (215 lb) 04/03/2025 8:47 AM CDT Height 177.8 cm (5' 10 ) 04/03/2025 8:47 AM CDT Body Mass Index 30.85 04/03/2025 8:47 AM CDT Plan of Treatment Upcoming Encounters Date Type Department Care Team (Latest Contact Info) Description 04/08/2025 10:00 AM CDT Hospital Encounter 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 [place] [address] 06/06/2025 10:00 AM PACK ROOM OPERATOR Office Visit [facility] Gastroenterology - [address] [place] [address] Leighton Chaudhary FNP [address] [place] [address] 08/27/2025 10:40 AM CDT Appointment [facility] Internal Medicine - [address] [place] [address] Hakeem Connelly MD [address] [place] [address] 09/30/2025 10:30 AM CDT Office Visit [facility] Heart and Vascular - [place] [address] [place] [address] Cliff Contreras MD [address] [place] [address] 11/14/2025 10:45 AM CDT Office Visit [facility] Pulmonology and Sleep Med - [address] [place] [address] Tevin Gómez MD [address] [place] [address] Health Maintenance Due Date Last Done Comments ZOSTER VACCINE (3 of 3) 09/09/2025 01/23/2021, 07/07 Postponed from 03/20/2021 (Patient Request) DTAP/TDAP/TD VACCINES (3 - Td or Tdap) 10/15/2032 10/15/2022, 07/16/2010 PNEUMOCOCCAL VACCINE 50+ YEARS Completed 05/16/2019, 05/16/2019, 04/21/2016, Additional history exists COVID-19 Vaccine Discontinued 09/24/2020, 09/03/2020 RSV VACCINE (60+ or ) Completed 04/10/2024 COLORECTAL SCREENING Discontinued 01/14/2025, 09/26/2023, 10/12/2022, Additional history exists Colorectal Cancer Screening Discontinued [place] ([place]) Preventative Visit/Annual Wellness Visit Completed 02/25/2025, 02/29/2024, 06/24/2022, Additional history exists INFLUENZA VACCINE Completed 03/27/2025, , 04/20/2022, Additional history exists FIT-DNA Q 3 years Discontinued FIT/FOBT Q 1 year Discontinued Flex Sig/CT Colonography Q 5 years Discontinued Medical Devices Implanted Type Area Digital Developer Device Identifier Shelf Expiration Date Model / Serial / Lot Mesh Ventralex 1.7in Circ [id number] - [id number] Implanted:Qty : 1 on 11/24/2020 by Darrius Song MD at [facility] Mesh N/A: Abdomen CR [employer] [id number] 04/16/2022 [id number] / / [id number] Stent Implanted:Qty : 1 on 02/04/2015 by Milo Robles MD Stent Coronary [employer] PR[employer]US PREMIER / / [id number] Description:drug eluting jorge nt placed in mid lad Stent Implanted:Qty : 1 on 02/04/2015 by Milo Robles MD Stent Coronary [employer]ER / / [id number] Description:drug eluting jorge nt placed in mid lad Procedures Procedure Name Priority Date/Time Associated Diagnosis Comments TROPONIN 2 HR, 5TH GEN Timed Study 03/26/2025 11:53 AM CDT D-DIMER Stat 03/26/2025 11:12 AM CDT XR CHEST PA OR AP 1 VW Stat 03/26/2025 10:33 AM CDT EKG 12-LEAD Routine 03/26/2025 10:19 AM CDT OXYGEN VIA DEVICE TO KEEP O2 SAT ABOVE Stat 03/26/2025 10:14 AM CDT PULSE OXIMETRY, CONTINUOUS Stat 03/26/2025 10:14 AM CDT TROPONIN BASELINE, 5TH GEN Stat 03/26/2025 10:13 AM CDT BASIC METABOLIC PANEL Stat 03/26/2025 10:13 AM CDT CBC WITH DIFFERENTIAL Stat 03/26/2025 10:13 AM CDT EKG 12-LEAD Stat 03/26/2025 10:08 AM CDT FERRITIN Routine 02/25/2025 11:07 AM CDT Iron deficiency anemia, unspecified iron deficiency anemia type IRON, TIBC, AND PERCENT SATURATION Routine 02/25/2025 11:07 AM CDT Iron deficiency anemia, unspecified iron deficiency anemia type LIPID PANEL Routine 02/25/2025 11:07 AM CDT Mixed hyperlipidemia COMPREHENSIVE METABOLIC PANEL Routine 02/25/2025 11:07 AM CDT Crohn's disease of colon without complication (CMS/HCC) CBC WITH DIFFERENTIAL Routine 02/25/2025 11:07 AM CDT Iron deficiency anemia, unspecified iron deficiency anemia type TELEMETRY REPORT 01/15/2025 11:05 AM CDT HEMOGLOBIN AND HEMATOCRIT Pending Discharge 01/14/2025 3:42 PM CDT COLONOSCOPY WITH BIOPSY 01/14/2025 3:10 PM CDT MI EGD TRANSORAL BIOPSY SINGLE/MULTIPLE 01/14/2025 3:10 PM CDT POC GLUCOSE Routine 01/14/2025 2:40 PM CDT COLONOSCOPY REPORT 01/14/2025 2: 17 PM CDT UPPER ENDOSCOPY REPORT 01/14/2025 2:14 PM CDT PATHOLOGY Pathology 01/14/2025 1:37 PM CDT POC GLUCOSE Routine 01/14/2025 12:58 PM CDT POC GLUCOSE Routine 01/14/2025 12:14 PM CDT ECHO LIMITED W DOPPLER AND COLOR FLOW Pending Discharge 01/14/2025 10:47 AM CDT POC GLUCOSE Routine 01/14/2025 7:50 AM CDT POC GLUCOSE Routine 01/14/2025 3:44 AM CDT CBC WITH DIFFERENTIAL Routine 01/14/2025 12:58 AM CDT COMPREHENSIVE METABOLIC PANEL Routine 01/14/2025 12:58 AM CDT MAGNESIUM LEVEL Routine 01/14/2025 12:58 AM CDT PHOSPHORUS Routine 01/14/2025 12:58 AM CDT POC GLUCOSE Routine 01/14/2025 12:16 AM CDT HEMOGLOBIN AND HEMATOCRIT Routine 01/13/2025 7:02 PM CDT POC GLUCOSE Routine 01/13/2025 5:07 PM CDT POC GLUCOSE Routine 01/13/2025 12:41 PM CDT VITAMIN B12 AND FOLATE Routine 01/13/2025 12:37 PM CDT HEMOGLOBIN AND HEMATOCRIT Routine 01/13/2025 12:37 PM CDT POC GLUCOSE Routine 01/13/2025 8:20 AM CDT HEMOGLOBIN AND HEMATOCRIT Routine 01/13/2025 6:08 AM CDT POC GLUCOSE Routine 01/13/2025 3:56 AM CDT CBC WITH DIFFERENTIAL Routine 01/13/2025 1:14 AM CDT COMPREHENSIVE METABOLIC PANEL Routine 01/13/2025 1:14 AM CDT MAGNESIUM LEVEL Routine 01/13/2025 1:14 AM CDT PHOSPHORUS Routine 01/13/2025 1:14 AM CDT POC GLUCOSE Routine 01/12/2025 11:46 PM CDT POC GLUCOSE Routine 01/12/2025 8:19 PM CDT POC GLUCOSE Routine 01/12/2025 5:22 PM CDT TYPE AND SCREEN Routine 01/12/2025 5:11 PM CDT HEMOGLOBIN AND HEMATOCRIT Routine 01/12/2025 5:11 PM CDT TROPONIN 6 HR, 5TH GEN Timed Study 01/12/2025 5:11 PM CDT TROPONIN 2 HR, 5TH GEN Timed Study 01/12/2025 1:30 PM CDT XR CHEST PA OR AP 1 VW Stat 01/12/2025 11:48 AM CDT OCCULT BLOOD GUAIAC DIAGNOSTIC Stat 01/12/2025 11:47 AM CDT EKG 12-LEAD Stat 01/12/2025 11:28 AM CDT IRON, TIBC, AND PERCENT SATURATION Stat 01/12/2025 11:28 AM CDT TROPONIN BASELINE, 5TH GEN Stat 01/12/2025 11:28 AM CDT COMPREHENSIVE METABOLIC PANEL Stat 01/12/2025 11:28 AM CDT CBC WITH DIFFERENTIAL Stat 01/12/2025 11:28 AM CDT from Last 3 Months Results * TROPONIN 2 HR, 5TH GEN (03/26/2025 11:53 AM CDT) Only the most recent of2 resultswithin the time period is included. TROPONIN T, 2 HR 5TH GEN 15 <=15 ng/L 03/26/2025 12:47 PM CDT [facility] DELTA 2HR TROPONIN T 0 See Interp. 03/26/2025 12:47 PM CDT [facility] Blood Venipuncture / Unknown 03/26/2025 11:53 AM CDT 03/26/2025 12:01 PM CDT [facility] [employer] [facility] - 03/26/2025 12:47 PM CDT Troponin Detectable but normal range. Delta not changing. Milo Ricks MD CHEMISTRY ORDERABLES Final Re sult Performing Organization Address [facility]/ZIP Co de Phone Number [facility] [employer] [facility] CLIA# [id number] [address] [place] [address] * D-DIMER (03/26/2025 11:12 AM CDT) D-DIMER QUANT 0.46 <0.50 ug/mL FEU 03/26/2025 11:33 AM CDT [facility] [employer] [facility] Blood Venipuncture / Unknown 03/26/2025 11:12 AM CDT 03/26/2025 11:15 AM CDT [facility] [employer] [facility] - 03/26/2025 11:33 AM CDT D-Dimer assay cutoff value for exclusion of DVT and/or PE is <0.50 ug/mL FEU. As D-Dimer levels increase naturally with age, age stratification for patients over 50 is potentially more appropriate in determining whether a patient should undergo further evaluation for DVT and/or PE than a general cutoff of 0.50 ug/mL FEU. Clinical consideration is recommended. Age Stratified Cutoff Values: 50-60 years: 0.50-0.60 ug/mL FEU 61-70 years: 0.61-0.70 ug/mL FEU 71-80 years: 0.71-0.80 ug/mL FEU Milo Ricks MD HEMATOLOGY ORDERABLES Final R esult Performing Organization Address [facility]/ZIP Co de Phone Number [facility] [employer] [facility] CLIA# [id number] [address] [place] [address] * XR CHEST PA OR AP 1 VW (03/26/2025 10:33 AM CDT) Only the most recent of2 resultswithin the time period is included. Anatomical Region Laterality Modality Chest Computed Radiogr aphy 03/26/2025 10:3 3 AM CDT Impressions 03/26/2025 10:37 AM CDT IMPRESSION: 1. No acute cardiopulmonary process. DICTATION LOCATION: Location 4 Narrative 03/26/2025 10:37 AM CDT EXAM: XR CHEST PA OR AP 1 VW DATE: 03/26/2025 HISTORY: Chest pain COMPARISON: January 12, 2025. FINDINGS: The lungs, pleura, cardiomediastinal silhouette, and bony thorax are normal. Procedure Note Williams Burns MD - 03/26/2025 EXAM: XR CHEST PA OR AP 1 VW DATE: 03/26/2025 HISTORY: Chest pain COMPARISON: January 12, 2025. FINDINGS: The lungs, pleura, cardiomediastinal silhouette, and bony thorax are normal. IMPRESSION: 1. No acute cardiopulmonary process. DICTATION LOCATION: Location 4 Milo Ricks MD DIAGNOSTIC IMAGING ORDERABLES Final Result * EKG Interpretation (03/26/2025 10:19 AM CDT) Only the most recent of3 resultswithin the time period is included. Narrative Milo Ricks MD - 03/26/2025 10:19 AM CDT Milo Ricks MD 03/26/2025 12:50 PM EKG Interpretation Date/Time: 03/26/2025 10:19 AM Performed by: Milo Ricks MD Authorized by: Milo Ricks MD ECG interpreted by ED Physician in the absence of a green promotions specialist: yes Comments: EKG interpreted by me, sinus rhythm, rate 70. Normal-appearing intervals. Isolated T wave inversion lead III, no ST segment changes, no STEMI. Milo Ricks MD ECG ORDERABLES Final Result * TROPONIN BASELINE, 5TH GEN (03/26/2025 10:13 AM CDT) Only the most recent of2 resultswithin the time period is included. TROPONIN T, BASELINE 5TH GEN 15 <=15 ng/L 03/26/2025 10:56 AM T [facility] [employer] [facility] Blood Venipuncture / Unknown 03/26/2025 10:13 AM CDT 03/26/2025 10:23 AM CDT Narrative [facility] - 03/26/2025 10:56 AM CDT Troponin Detectable but normal range. us Milo Ricks MD CHEMISTRY ORDERABLES Final Re sult [facility] CLIA# [id number] [address] [place] [address] * (ABNORMAL) CBC WITH DIFFERENTIAL (03/26/2025 10:13 AM CDT) Only the most recent of5 resultswithin the time period is included. WBC 9.1 4.0 - 9.8 K/uL 03/26/2025 10:27 AM [facility] [employer] [facility] Comment:ANC = 6.24K/uL RBC 3.33(L) 4.50 - 5.40 M/uL 03/26/2025 10:27 AM [facility] HEMOGLOBIN 9.2(L) 13.6 - 16.5 g/dL 03/26/2025 10:27 AM [facility] [employer] [facility] HEMATOCRIT 30.2(L) 40.0 - 48.0 % 03/26/2025 10:27 AM [facility] [employer] [facility] MCV 90.7 82.0 - 99.0 fL 03/26/2025 10:27 AM [facility] [employer] [facility] MCH 27.6 27.2 - 32.6 pg 03/26/2025 10:27 AM [facility] MCHC 30.5(L) 31.5 - 35.5 g/dL 03/26/2025 10:27 AM [facility] [employer] [facility] RDW 15.9(H) 11.5 - 14.5 % 03/26/2025 10:27 AM [facility] [employer] [facility] RDW-STDEV 52.6(H) 37.1 - 48.7 fL 03/26/2025 10:27 AM CDT [facility] [place] PLATELETS 275 140 - 350 K/uL 03/26/2025 10:27 AM CDT [facility] [place] MPV 9.7 9.3 - 12.4 fL 03/26/2025 10:27 AM CDT [employer] [place] NEUTROPHILS 69 % 03/26/2025 10:27 AM CDT [facility] [place] LYMPHOCYTES 17 % 03/26/2025 10:27 AM CDT [facility] [place] MONOCYTES 10 % 03/26/2025 10:27 AM CDT [facility] [place] EOSINOPHILS 3 % 03/26/2025 10:27 AM CDT [facility] [place] BASOPHILS 0 % 03/26/2025 10:27 AM CDT [facility] [place] IMMATURE GRANULOCYTES 0 % 03/26/2025 10:27 AM CDT [facility] [place] NEUTROPHIL ABSOLUTE 6.24 1.90 - 7.00 K/uL 03/26/2025 10:27 AM CDT [facility] [place] LYMPHOCYTE ABSOLUTE 1.57 0.70 - 4.50 K/uL 03/26/2025 10:27 AM CDT [facility] [place] MONOCYTE ABSOLUTE 0.94 0.10 - 1.30 K/uL 03/26/2025 10:27 AM CDT [facility] [employer] [facility] [place] EOSINOPHIL ABSOLUTE 0.26 0.00 - 0.70 K/uL 03/26/2025 10:27 AM CDT [employer] [facility] [place] BASOPHILS ABSOLUTE 0.04 0.00 - 0.20 K/uL 03/26/2025 10:27 AM CDT [employer] [facility] [place] IMMATURE GRANULOCYTES ABSOLUTE 0.02 0.00 - 0.03 K/uL 03/26/2025 10:27 AM T [employer] [facility] [place] Blood Venipuncture / Unknown 03/26/2025 10:13 AM CDT 03/26/2025 10:23 AM CDT us Milo Ricks MD HEMATOLOGY ORDERABLES Final R esult [employer] [facility] [place] CLIA# [id number] [address] [place] [address] * (ABNORMAL) BASIC METABOLIC PANEL (03/26/2025 10:13 AM CDT) SODIUM 134(L) 136 - 145 mmol/L 03/26/2025 10:56 AM [facility] POTASSIUM 4.4 3.5 - 4.9 mmol/L 03/26/2025 10:56 AM [facility] CHLORIDE 101 98 - 107 mmol/L 03/26/2025 10:56 AM [facility] CO2 21(L) 22 - 29 mmol/L 03/26/2025 10:56 AM [facility] [employer] [facility] CALCIUM 9.4 8.6 - 10.2 mg/dL 03/26/2025 10:56 AM [facility] BUN 17 6 - 20 mg/dL 03/26/2025 10:56 AM [facility] CREATININE 1.14 0.67 - 1.17 mg/dL 03/26/2025 10:56 AM [facility] Comment:The GFR result is no t clinically significant on patients <18 or >70 years of age. GLUCOSE 117(H) 74 - 99 mg/dL 03/26/2025 10:56 AM [facility] [employer] [facility] GFR >60 mL/min/1.7 3 sq meter 03/26/2025 10:56 AM [facility] [employer] [facility] Comment:eGFR calculated with 2020 CKD-EPI equation. Vegetarian diet, extremely high or low muscle mass, and may affect results. Cystatin C with Glomerular Filtration Rate is a suitable alternative for these patients. ANION GAP 12 8 - 16 mmol/L 03/26/2025 10:56 AM [facility] [employer] [facility] Blood Venipuncture / Unknown 03/26/2025 10:13 AM CDT 03/26/2025 10:23 AM CDT us Milo Ricks MD CHEMISTRY ORDERABLES Final Re sult [facility] [employer] [facility] CLIA# [id number] [address] [place] [address] * IRON, TIBC, AND PERCENT SATURATION (02/25/2025 11:07 AM CDT) Only the most recent of2 resultswithin the time period is included. Pathologist [facility] IRON 141 50 - 180 mcg/dL [facility] TIBC 404 250 - 425 mcg/dL (calc) [facility] IRON % SATURATION 35 20 - 48 % (calc) [facility] Comment: FASTING:NO FASTING: NO Test Performed at: [facility] [address] [place] [phone] Danielito Rosen MD Blood 02/25/2025 11:0 7 AM CDT 02/25/2025 11:07 AM CDT Hakeem Connelly MD CHEMISTRY ORDERABLES Final Resul t Performing Organization Address City/[facility]/ZIP Co de Phone Number [facility] [phone] [facility] [address] * (ABNORMAL) FERRITIN (02/25/2025 11:07 AM CDT) [facility] FERRITIN 11(L) 24 - 380 ng/mL [facility] Comment: FASTING:NO FASTING: NO Test Performed at: [facility] [address] [place] [phone] Danielito Rosen MD Blood 02/25/2025 11:0 7 AM CDT 02/25/2025 11:07 AM CDT Hakeem Connelly MD CHEMISTRY ORDERABLES Final Resul t [facility] [phone] [employer] [address] * LIPID PANEL (02/25/2025 11:07 AM CDT) [facility] CHOLESTEROL 123 <200 mg/dL [facility] HDL 52 > OR = 40 mg/dL [facility] TRIGLYCERIDE 143 <150 mg/dL [facility] LDL CALCULATED 48 mg/dL (calc) [facility] Comment: Reference range: <100 Desirable range <100 mg/dL for primary prevention; <70 mg/dL for patients with CHD or diabetic patients with > or = 2 CHD risk factors. LDL-C is now calculated using the Yaneth calculation, which is a validated novel method providing better accuracy than the Friedewald equation in the estimation of LDL-C. Jordon LOGAN et al. JOSE. 2013;310(19): 5971-6670 (http://education.SafeBoot/faq/ENI932) CHOL/HDL RATIO 2.4 <5.0 (calc) [facility] NON-HDL CHOLESTEROL 71 <130 mg/dL (calc) [facility] Comment: For patients with diabetes plus 1 major ASCVD risk factor, treating to a non-HDL-C goal of <100 mg/dL (LDL-C of <70 mg/dL) is considered a therapeutic option. Test Performed at: [facility] [address] [place] [phone] [facility] Ellen Rosen Blood 02/25/2025 11:0 7 AM CDT 02/25/2025 11:07 AM CDT us Hakeem Connelly MD CHEMISTRY ORDERABLES Final Resul t [facility] [phone] [facility] [address] [place] [place] [phone] * (ABNORMAL) COMPREHENSIVE METABOLIC PANEL (02/25/2025 11:07 AM CDT) Only the most recent of4 resultswithin the time period is included. GLUCOSE 102 65 - 139 mg/dL [facility] Comment: Non-fasting reference interval BUN 18 7 - 25 mg/dL [facility] CREATININE 1.09 0.70 - 1.28 mg/dL [facility] GFR 71 > OR = 60 mL/min/1. 73m2 [facility] BUN/CREAT RATIO SEE NOTE: 6 - 22 (calc) [facility] Comment: Not Reported: BUN and Creatinine are within reference range. SODIUM 134(L) 135 - 146 mmol/L [facility] POTASSIUM 4.5 3.5 - 5.3 mmol/L [facility] CHLORIDE 101 98 - 110 mmol/L [facility] CO2 25 20 - 32 mmol/L [facility] CALCIUM 9.3 8.6 - 10.3 mg/dL [facility] TOTAL PROTEIN 6.7 6.1 - 8.1 g/dL [facility] ALBUMIN 4.4 3.6 - 5.1 g/dL [facility] GLOBULIN 2.3 1.9 - 3.7 g/dL (calc) [facility] ALBUMIN/GLOBULIN RATIO 1.9 1.0 - 2.5 (calc) [facility] BILIRUBIN TOTAL 0.4 0.2 - 1.2 mg/dL [facility] ALKALINE PHOSPHATASE 69 35 - 144 U/L [facility] AST 21 10 - 35 U/L [facility] ALT 22 9 - 46 U/L [facility] Comment: FASTING:NO FASTING: NO Test Performed at: [facility] [address] [place] [address] Danielito Rosen Blood 02/25/2025 11:0 7 AM CDT 02/25/2025 11:07 AM CDT Result [facility] Hakeem Connelly MD CHEMISTRY ORDERABLES Final Resul t [facility] [phone] [facility] [address] [place] [address] * TELEMETRY REPORT (01/15/2025 11:05 AM CDT) Result [facility] Provider Scanning ECG ORDERABLES Final Result * (ABNORMAL) HEMOGLOBIN AND HEMATOCRIT (01/14/2025 3:42 PM CDT) Only the most recent of5 resultswithin the time period is included. HEMOGLOBIN 8.8(L) 13.6 - 16.5 g/dL 01/14/2025 3:48 PM CDT [facility] HEMATOCRIT 28.9(L) 40.0 - 48.0 % 01/14/2025 3:48 PM CDT [facility] Blood Venipuncture / Unknown 01/14/2025 3:42 PM CDT 01/14/2025 3:45 PM CDT Leighton Weaver MD HEMATOLOGY ORDERABLES F inal Result Performing Organization Address City/[facility]/ZIP Co de Phone Number [facility] CLIA# [id number] [address] [place] [address] * POC GLUCOSE (01/14/2025 2:40 PM CDT) Only the most recent of13 resultswithin the time period is included. GLUCOSE POC 82 74 - 99 mg/dL 01/14/2025 2:40 PM CDT [facility] SPECIMEN SOURCE, GLUCOSE POC Whole Blood 01/14/2025 2:40 PM CDT [facility] Blood, whole 01/14/2025 2:40 PM CDT 01/14/2025 2:47 PM CDT Result [facility] Leighton Weaver MD POINT OF CARE TESTING F inal Result Performing Organization Address [facility]/ZIP Co de Phone Number [facility] CLIA# [id number] [address] [place] [address] * COLONOSCOPY REPORT (01/14/2025 2:17 PM CDT) Narrative Procedure Note Chayito Rick MBBS - 01/14/2025 2:17 PM CDT [facility] GI Patient Name: Abdoul Patel Procedure Date: 01/14/2025 Date of : 1950 Admit Type: Inpatient Age: 74 Attending MD: Chayito Rick MD, Procedure: Colonoscopy Indications: Iron deficiency anemia, Crohn's disease of the colon Patient Profile: This is a 74 year old male. Refer to note in patient chart for documentation of history and physical. Providers: Chayito Rick MD Referring MD: Hakeem Connelly MD, Hernandez Handley MD Requesting Provider: Medicines: Monitored Anesthesia Care Complications: No immediate complications. Estimated blood loss: None. Procedure: After I obtained informed consent, the scope was passed under direct vision. Throughout the procedure, the patient's blood pressure, pulse, and oxygen saturations were monitored continuously. The Colonoscope was introduced through the anus and advanced to the terminal ileum, with identification of the appendiceal orifice and IC valve. The colonoscopy was performed without difficulty. The patient tolerated the procedure well. The quality of the bowel preparation was evaluated using the BBPS (Harrison Bowel Preparation Scale) with scores of: Right Colon = 2 (minor amount of residual staining, small fragments of stool and/or opaque liquid, but mucosa seen well), Transverse Colon = 3 (entire mucosa seen well with no residual staining, small fragments of stool or opaque liquid) and Left Colon = 3 (entire mucosa seen well with no residual staining, small fragments of stool or opaque liquid). The total BBPS score equals 8. Findings: The perianal and digital rectal examinations were normal. Pertinent negatives include normal sphincter tone. The colon (entire examined portion) appeared normal. Biopsies were taken with a cold forceps for histology. Estimated blood loss: none. The terminal ileum appeared normal. Impression: - The entire examined colon is normal. Biopsied. - The examined portion of the ileum was normal. Recommendation: - [facility]. - Await pathology results. - The findings and recommendations were discussed with the patient. - Pathology results typically take 1-2 weeks for us to obtain, assess, and review them for your specific condition(s); and I/we will let you know the results. Some results are automatically released before I can review them, but be aware I will add comments once I personally review them and let you know. Please review [facility] ( if you have it) for any results or comments; as some results will appear there once I have reviewed them. *Please call GI office for your pathology results if you HAVE NOT heard from us in 3 weeks from your procedure date.* Procedure Code(s): --- Professional --- 26556, Colonoscopy, flexible; with biopsy, single or multiple Diagnosis Code(s): --- Professional --- D50.9, Iron deficiency anemia, unspecified K50.10, Crohn's disease of large intestine without complications CPT copyright 2020 [employer]. All rights reserved. The codes documented in this report are preliminary and upon [employer] review may be revised to meet current compliance requirements. Chayito Rick MD 01/14/2025 2:16:59 PM Number of Addenda: 0 Estimated Blood Loss: Estimated blood loss: none. us Chayito [facility] GI PROCEDURE ORDERABLES Coby l Result * UPPER ENDOSCOPY REPORT (01/14/2025 2:14 PM CDT) Narrative Procedure Note Chayito Rick MBBS - 01/14/2025 2:14 PM CDT [facility] GI Patient Name: Abdoul Patel Procedure Date: 01/14/2025 Date of : 1950 Admit Type: Inpatient Age: 74 Attending MD: Chayito Rick MD, Procedure: Upper GI endoscopy Indications: Iron deficiency anemia Patient Profile: This is a 74 year old male. Refer to note in patient chart for documentation of history and physical. Providers: Chayito Rick MD Referring MD: Hakeem Connelly MD, Hernandez Handley MD Requesting Provider: Medicines: Monitored Anesthesia Care Complications: No immediate complications. Estimated blood loss: None. Procedure: After obtaining informed consent, the endoscope was passed under direct vision. Throughout the procedure, the patient's blood pressure, pulse, and oxygen saturations were monitored continuously. The Endoscope was introduced through the mouth, and advanced to the second part of duodenum. The upper GI endoscopy was accomplished without difficulty. The patient tolerated the procedure well. Findings: The examined esophagus was normal. No gross lesions were noted in the stomach. Biopsies were taken with a cold forceps for histology. Estimated blood loss: none. The duodenal bulb and second portion of the duodenum were normal. Biopsies for histology were taken with a cold forceps for evaluation of celiac disease. Estimated blood loss: none. Impression: - Normal esophagus. - No gross lesions in the stomach. Biopsied. - Normal duodenal bulb and second portion of the duodenum. Biopsied. Recommendation: - Await pathology results. - The findings and recommendations were discussed with the patient. - Pathology results typically take 1-2 weeks for us to obtain, assess, and review them for your specific condition(s); and I/we will let you know the results. Some results are automatically released before I can review them, but be aware I will add comments once I personally review them and let you know. Please review [facility] ( if you have it) for any results or comments; as some results will appear there once I have reviewed them. *Please call GI office for your pathology results if you HAVE NOT heard from us in 3 weeks from your procedure date.* - Follow up Dr Handley in theGI office Procedure Code(s): --- Professional --- 63378, Esophagogastroduodenoscopy, flexible, transoral; with biopsy, single or multiple Diagnosis Code(s): --- Professional --- D50.9, Iron deficiency anemia, unspecified CPT copyright 2020 [employer]. All rights reserved. The codes documented in this report are preliminary and upon [employer] review may be revised to meet current compliance requirements. Chayito Rick MD 01/14/2025 2:14:30 PM Number of Addenda: 0 Estimated Blood Loss: Estimated blood loss: none. Chayito [facility] GI PROCEDURE ORDERABLES Coby l Result * PATHOLOGY (01/14/2025 1:37 PM CDT) CASE REPORT Surgical Pathology R eport Case: [id number] Authorizing Provider: Chayito Rick MBBS Collected: 01/14/2025 01:37 PM Ordering Location: [facility] GI Lab E 5th Received: 01/15/2025 06:31 AM Pathologist: Iliana Cruz MD Specimens: A) - Duodenum, bx 2nd portion r/o celiac h/o crohns...prictm/rt B) - Stomach, bx r/o HP...prictm/rt C) - Colon, right, random bx h/o crohns...prictm/rt D) - Colon, left, random bx h/o crohns...prictm/rt 5 2:08 PM T [facility] FINAL DIAGNOSIS A. Duodenum, biopsy: - Small bowel mucosa without diagnostic abnormality. - Villi and plasma cells are present. - No evidence of Whipple's disease, celiac sprue or Giardia. B. Stomach, biopsy: - Moderate chronic inactive gastritis, negative for Helicobacter pylori organisms (as evaluated by conventional H&E morphology). - No evidence of glandular atrophy, intestinal metaplasia, dysplasia or invasive malignancy. C. Right colon, biopsy: - Normal large bowel mucosa. - No evidence of microscopic (lymphocytic/collagenous) colitis. D. Left colon, biopsy: - Normal large bowel mucosa. - No evidence of microscopic (lymphocytic/collagenous) colitis. 5 2:08 PM T [facility] at 1408 CDT GROSS DESCRIPTION The specimens are received in four containers each labeled Abdoul Patel . Received in the first container additionally labeled duodenum biopsy are 3 pieces of pink-dominguez tissue ranging from 0.2 to 0.4 cm in greatest dimension. All are submitted in cassette A1. Received in the second container additionally labeled stomach biopsy are 3 pieces of pink-dominguez tissue ranging from 0.3 to 0.5 cm in greatest dimension. All are submitted in cassette B1. Received in the third container additionally labeled right colon biopsy are 4 pieces of pink-dominguez tissue ranging from 0.2 to 0.3 cm in greatest dimension. All are submitted in cassette C1. Received in the fourth container additionally labeled left colon biopsy are 6 pieces of pink-dominguez tissue ranging from 0.2 to 0.4 cm in greatest dimension. All are submitted in cassette D1. [facility] 5 2:08 PM T [facility] MICROSCOPIC DESCRIPTION The slides are labeled [id number] and Abdoul Patel. Microscopic examination is performed and supports the above diagnoses. 5 2:08 PM T [facility] OPERATIVE PROCEDURE 1: ESOPHAGOGASTRODUODENOSCOP Y WITH BIOPSY 2: COLONOSCOPY WITH BIOPSY 2:08 PM CDT [facility] COMMENT Special stain, immunohistochemical, and/or in situ hybridization results are interpreted with controls that demonstrate appropriate staining reactions. Note on use of immunohistochemistry reagents and in situ hybridization probes: These tests were developed and their performance characteristics determined by [facility], Department of Laboratory Medicine. It has not been cleared or approved by the U.S. Food and Drug Administration. The FDA has determined that such clearance or approval is not necessary. The test is used for clinical purposes. It should not be regarded as investigational or for research. This laboratory is certified to perform high complexity testing. Frozen section/operating room consultation, gross examination and dissection, and case sign out may have been performed in part or completely in the following laboratories: [facility], CLIA #[id number] [address] [place] [address] [facility], [place] #[id number] [address] [place] [address] [facility], [place] #[id number] [address] [place] [address] This report was created with the [employer] voice-activated dictation system. Inherent to this system is the possibility of syntax, grammar, punctuation and other errors that could impact the interpretation of the report. If there are interpretative questions about aspects of this report, please contact the performing pathologist. 2:08 PM T [facility] Tissue ENTIRE DUODENUM / Unknown Collection / Unknown 01/14/2025 1:37 PM CDT 01/15/2025 6:31 AM CDT Tissue specimen (specimen) ENTIRE STOMACH / Unknown 01/14/2025 1:38 PM CDT 01/15/2025 6:31 AM CDT Tissue specimen (specimen) (Colon, right) 01/14/2025 1:59 PM CDT 01/15/2025 6:31 AM CDT Tissue specimen (specimen) (Colon, left) 01/14/2025 2:00 PM CDT 01/15/2025 6:31 AM CDT us Chayito Prabhjot [facility] PATHOLOGY/CYTOLOGY ORDERABLE S Final Result [facility]# [id number] [address] [facility] [place] [address] * ECHO LIMITED W DOPPLER AND COLOR FLOW (01/14/2025 10:47 AM CDT) EJECTION FRACTION 60 INTERFACE SYSTEM 01/14/2025 9:59 AM CDT Narrative INTERFACE SYSTEM - 01/14/2025 1:22 PM [address]T [address] [address] [email or web address] Transthoracic Echocardiogram Patient: Abdoul Patel Study ID: [id number] Gender: M : 1950 Age: 74 Race: CAU Height 180.3cm Study Date: 01/14/2025 Weight: 98kg Access. 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 History: PMH: CAD. HLD. Risk factors: Hypertension. STUDY CONCLUSIONS: SUMMARY: - Left ventricle: For [facility] reporting: the left ventricular ejection fraction is 60% . Mild LVH of the sptum. - Aortic valve: Mild regurgitation. - Mitral valve: Mild regurgitation. - Tricuspid valve: Mild-moderate regurgitation. The RVSP was 42 mmHg. This is consistent with mild pulmonary hypertension. - Pulmonic valve: Mild regurgitation. - Aortic root is upper limits of normal at 4.1 cm. Cardiac Anatomy: LEFT VENTRICLE: For Epic reporting: the left ventricular ejection fraction is 60% . AORTIC VALVE: Mild regurgitation. The mean systolic gradient is 5mm Hg. The peak systolic gradient is 9mm Hg. The LVOT to aortic valve VTI ratio is 0.59. The ratio of LVOT to aortic valve peak velocity is 0.73. MITRAL VALVE: Mild regurgitation. PULMONIC VALVE: Mild regurgitation. TRICUSPID VALVE: Mild-moderate regurgitation. The RVSP was 42 mmHg. This is consistent with mild pulmonary hypertension. Measurements Left ventricle Value Ref 07/31/2024 IVS, ED, LAX (H) 1.4 cm 0.6 - 1.0 1.0 ROBIN, LAX (N) 4.5 cm 4.2 - 5.8 5.2 ESD, LAX (N) 3.2 cm 2.5 - 4.0 3.5 ROBIN/bsa, LAX (L) 2.1 cm/m^2 2.2 - 3.0 2.3 FS, LAX (N) 30 % 25 - 43 32 Mid-wall FS, LAX (L) 12 % 14 - 22 16 PW, ED, LAX (N) 0.9 cm 0.6 - 1.0 1.0 IVS/PW, ED, LAX 1.45 --------- 1.04 LVOT Value Ref 07/31/2024 Peak natalya, S 1.07 m/sec --------- 1.19 VTI, S 23.0 cm --------- 26.2 Aortic valve Value Ref 07/31/2024 Peak v, S 1.5 m/sec --------- 1.7 VTI, S 39.1 cm --------- 33.2 Mean grad, S 5 mm Hg --------- 7 Peak grad, S 9 mm Hg --------- 12 LVOT/AV, VTI ratio 0.59 --------- 0.79 LVOT/AV, Vpeak ratio 0.73 --------- 0.7 Tricuspid valve Value Ref 07/31/2024 TR peak v (H) 3.3 m/sec <=2.8 2.6 Peak RV-RA grad, S 42 mm Hg --------- 28 Ascending aorta Value Ref 07/31/2024 AAo AP diam, S 4.0 cm --------- 4.1 AAo AP diam/bsa, S 1.9 cm/m^2 --------- 1.8 Legend: (L) and (H) sridhar values outside specified reference range. (N) nunes values inside specified reference range. Procedure data: Comparison was made to the study of 07/31/2024. Study status: STAT. Procedure information: A transthoracic echocardiogram was performed. Scanning was performed from the parasternal, apical, and subcostal acoustic windows. Transthoracic echocardiogram, limited study. Complete 2D, complete spectral Doppler, and color Doppler. Birthdate: Patient birthdate: 1950. Age: Patient is 74year(s) old. Sex: gender: male. Height: 180.3cm. 71in. Weight: 98kg. 216lb. Body mass index: 30.1kg/m^2. Body surface area: 2.18m^2. Blood pressure: 117/57 Patient status: Observation. Study date: Study date: 01/14/2025. Study time: 09:59 AM. Location: Bedside. Prepared and Electronically Authenticated Jared Gunn 2069-08-27Z21:21:54 Procedure Note Jared Gunn DO - 01/14/[address] [address] [email or web address] Transthoracic Echocardiogram Patient: Abdoul Patel Study ID: [id number] Gender: M : 1950 Age: 74 Race: CAU Height 180.3cm Study Date: 01/14/2025 Weight: 98kg Access. #: [id number] BP: 117 / 57 *Referring Physician:* Andressa Bender *Ordering Physician:Andressa Ramirez *Profile Mill Operator Tape Control:Ghanshyam Ldad cement finisher: Nurse: Indications: Syncope. History: PMH: CAD. HLD. Risk factors: Hypertension. STUDY CONCLUSIONS: SUMMARY: - Left ventricle: For Epic reporting: the left ventricular ejectionfraction is 60% . Mild LVH of the sptum. - Aortic valve: Mild regurgitation. - Mitral valve: Mild regurgitation. - Tricuspid valve: Mild-moderate regurgitation. The RVSP was 42 mmHg. Thisis consistent with mild pulmonary hypertension. - Pulmonic valve: Mild regurgitation. - Aortic root is upper limits of normal at 4.1 cm. Cardiac Anatomy: LEFT VENTRICLE: For Epic reporting: the left ventricular ejectionfraction is 60% . AORTIC VALVE: Mild regurgitation. The mean systolic gradient is 5mm Hg.The peak systolic gradient is 9mm Hg. The LVOT to aortic valve VTI ratio is0.59. The ratio of LVOT to aortic valve peak velocity is 0.73. MITRAL VALVE: Mild regurgitation. PULMONIC VALVE: Mild regurgitation. TRICUSPID VALVE: Mild-moderate regurgitation. The RVSP was 42 mmHg. Thisis consistent with mild pulmonary hypertension. Measurements Left ventricle Value Ref 07/31/2024 IVS, ED, LAX (H) 1.4 cm 0.6 - 1.0 1.0 ROBIN, LAX (N) 4.5 cm 4.2 - 5.8 5.2 ESD, LAX (N) 3.2 cm 2.5 - 4.0 3.5 ROBIN/bsa, LAX (L) 2.1 cm/m^2 2.2 - 3.0 2.3 FS, LAX (N) 30 % 25 - 43 32 Mid-wall FS, LAX (L) 12 % 14 - 22 16 PW, ED, LAX (N) 0.9 cm 0.6 - 1.0 1.0 IVS/PW, ED, LAX 1.45 --------- 1.04 LVOT Value Ref 07/31/2024 Peak natalya, S 1.07 m/sec --------- 1.19 VTI, S 23.0 cm --------- 26.2 Aortic valve Value Ref 07/31/2024 Peak v, S 1.5 m/sec --------- 1.7 VTI, S 39.1 cm --------- 33.2 Mean grad, S 5 mm Hg --------- 7 Peak grad, S 9 mm Hg --------- 12 LVOT/AV, VTI ratio 0.59 --------- 0.79 LVOT/AV, Vpeak ratio 0.73 --------- 0.7 Tricuspid valve Value Ref 07/31/2024 TR peak v (H) 3.3 m/sec <=2.8 2.6 Peak RV-RA grad, S 42 mm Hg --------- 28 Ascending aorta Value Ref 07/31/2024 AAo AP diam, S 4.0 cm --------- 4.1 AAo AP diam/bsa, S 1.9 cm/m^2 --------- 1.8 Legend: (L) and (H) sridhar values outside specified reference range. (N) nunes values inside specified reference range. Procedure data: Comparison was made to the study of 07/31/2024. Study status: STAT. Procedure information: A transthoracic echocardiogram was performed.Scanning was performed from the parasternal, apical, and subcostal acousticwindows. Transthoracic echocardiogram, limited study. Complete 2D,complete spectral Doppler, and color Doppler. Birthdate: Patient birthdate: 1950. Age: Patient is 74year(s) old. Sex: gender: male. Height: 180.3cm. 71in. Weight: 98kg. 216lb. Body mass index:30.1kg/m^2. Body surface area: 2.18m^2. Blood pressure: 117/57 Patientstatus: Observation. Study date: Study date: 01/14/2025. Study time: 09:59 AM. Location: Bedside. Prepared and Electronically Authenticated Luis A Jared [id number] us Andressa Bender NP US ORDERABLES Final Result INTERFACE SYSTEM Refer to clinic/hospital department * (ABNORMAL) PHOSPHORUS (01/14/2025 12:58 AM CDT) Only the most recent of2 resultswithin the time period is included. PHOSPHORUS 2.0(L) 2.5 - 4.5 mg/dL 01/14/2025 1:28 AM CDT [facility] [employer] [facility] Blood Venipuncture / Unknown 01/14/2025 12:58 AM CDT 01/14/2025 1:01 AM CDT Kaylen Doshi MD CHEMISTRY ORDERABLES Final R esult Performing Organization Address City/[facility]/ZIP Co de Phone Number [facility] [employer] [facility] CLIA# [id number] [address] [place] [address] * MAGNESIUM LEVEL (01/14/2025 12:58 AM CDT) Only the most recent of2 resultswithin the time period is included. MAGNESIUM 2.3 1.5 - 2.5 mg/dL 01/14/2025 1:28 AM CDT [facility] [employer] [facility] Blood Venipuncture / Unknown 01/14/2025 12:58 AM CDT 01/14/2025 1:01 AM CDT Kaylen Doshi MD CHEMISTRY ORDERABLES Final R esult [facility] [employer] [facility] CLIA# [id number] [address] [place] [address] * VITAMIN B12 AND FOLATE (01/13/2025 12:37 PM CDT) VITAMIN B12 377 232 - 1,245 pg/mL 01/13/2025 6:28 PM CDT [facility] [employer] [facility] Comment:It has been reported that between 5 to 10% of patients with values between 200 and 400 pg/mL may experience neuropsychiatric and hematologic abnormalities due to occult B12 deficiency. Less than 1% of patients with values above 400 pg/mL will have symptoms. FOLATE, SERUM 11.9 >4.5 ng/mL 01/13/2025 6:28 PM CDT [employer] [facility] Blood Venipuncture / Unknown 01/13/2025 12:37 PM CDT 01/13/2025 12:41 PM CDT Chayito OBREGON CHEMISTRY ORDERABLES Final R esult [facility] [employer] [facility] CLIA# [id number] [address] [place] [address] * (ABNORMAL) TROPONIN 6 HR, 5TH GEN (01/12/2025 5:11 PM CDT) TROPONIN T, 6 HR 5TH GEN 20(H) <=15 ng/L 01/12/2025 5:43 PM CDT [facility] [place] DELTA 6HR TROPONIN T 1 See Interp. 01/12/2025 5:43 PM CDT [facility] [place] Blood Venipuncture / Unknown 01/12/2025 5:11 PM CDT 01/12/2025 5:16 PM CDT Narrative [facility] [place] - 01/12/2025 5:43 PM CDT Troponin elevated. Delta indeterminate. Kaylen Doshi MD CHEMISTRY ORDERABLES Final R esult [facility] [employer] [facility] CLIA# [id number] [address] [place] [address] * TYPE AND SCREEN (01/12/2025 5:11 PM CDT) ABO GROUP O 01/12/2025 6:02 PM CDT [facility] [place] RH (D) TYPE Negative 01/12/2025 6:02 PM CDT [facility] [place] ANTIBODY SCREEN Negative 01/12/2025 6:02 PM CDT [facility] [place] Blood Venipuncture / Unknown 01/12/2025 5:11 PM CDT 01/12/2025 5:16 PM CDT Andressa Bender NP BLOOD BANK ORDERABLES Edited Res ult - Final [facility] [employer] [facility] CLIA# [id number] [address] [place] [address], * (ABNORMAL) OCCULT BLOOD GUAIAC DIAGNOSTIC (01/12/2025 11:47 AM CDT) OCCULT BLOOD, STOOL Positive(A ) Negative 01/12/2025 11:58 AM CDT [facility] [employer] [facility] Stool STOOL SPECIMEN / Unknown Collection / Unknown 01/12/2025 11:47 AM CDT 01/12/2025 11:56 AM CDT Dex García DO BODY FLUIDS AND STOOLS Final R esult [facility] [employer] [facility] CLIA# [id number] [address] [place] [address] from Last 3 Months Insurance [facility] [id number] [facility] [employer] Advance Directives For more information, please contact: [phone] * Full Code (Latest Code Status on File) Date Activated Date Inactivated Comments 01/12/2025 2:56 PM 01/14/2025 6:47 PM * Full Code Date Activated Date Inactivated Comments 05/11/2024 9:28 AM 05/11/2024 12:58 PM * Full Code Date Activated Date Inactivated Comments 05/11/2024 7:55 AM 05/11/2024 9:28 AM * Full Code Date Activated Date Inactivated Comments 09/26/2023 8:00 AM 09/26/2023 11:55 AM * Full Code Date Activated Date Inactivated Comments 10/12/2022 11:23 AM 10/12/2022 2:40 PM Care Teams Business Practices Supervisor Relationship Specialty Start Date End Date Hakeem Connelly MD [address] [place] [address] PCP - General 12/27/02
--- OUTSIDE RECORDS SUMMARY | 2025-04-04 11:37 | XMS_ITS | Encounter Summary ---
Author Organization [facility] Address [address] [place] [address] Care Team Providers Care Heel Nail Rasper Name Role Phone Hakeem Connelly MD Primary Care Provider Encounter Details Date Type Department Care Team (Late st Contact Info) Description 12/27/2002 Outpatient Historical [facility] Hakeem Connelly MD 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 [address] [place] [address] Hernandez Handley MD [address] [place] [address] 11, Mob Crohn's disease of colon without complication (CMS/HCC) 05/28/2025 9:40 AM SOFTWARE DEVELOPMENT INTERN Appointment [facility] Internal Medicine - [address] [place] [address] Hakeem Connelly MD [address] [place] [address] 06/06/2025 10:00 AM SOFTWARE DEVELOPMENT INTERN Office Visit [facility] Gastroenterology - [address] [place] [address] Leighton Chaudhary FNP [address] [place] [address] 08/27/2025 10:40 AM CDT Appointment [facility] Internal Medicine - [address] [place] [address] Hakeem Connelly MD [address] [place] [address] 09/30/2025 10:30 AM CDT Office Visit [facility] Heart and Vascular - [place] [address] [phone] Cliff Contreras MD [address] [place] [address] 11/14/2025 10:45 AM CDT Office Visit [facility] Pulmonology and Sleep Med - [address] [place] [address] Tevin Gómez MD [address] [place] [address] documented as of this encounter Visit Diagnoses Diagnosis Backache, unspecified- Primary documented in this encounter Additional Health Concerns Infection Onset Date Last Indicated Resolved Time R/O COVID-19 03/07/2020 03/07/2020 03/08/2020 3:00 PM CDT R/O COVID-19 09/23/2022 09/23/2022 09/23/2022 9:58 AM CDT documented as of this encounter Care Teams Heel Nail Rasper Relationship Specialty Start Date End Date Hakeem Connelly MD [address] [place] [address] PCP - General 12/27/02 documented as of this encounter
--- OUTSIDE RECORDS SUMMARY | 2025-04-04 11:37 | XMS_ITS | Encounter Summary ---
Author Organization [facility] Address [address] [place] [address] Care Team Providers Care Agricultural Produce Washer Name Role Phone Hakeem Connelly MD Primary Care Provider Encounter Details Date Type Department Care Team (Late st Contact Info) Description 01/28/2003 Outpatient Historical [facility] Hakeem Connelly MD 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 Gender Identity Not on file Sexual Orientation Not on file documented as of this encounter Plan of Treatment Upcoming Encounters Date Type Department Care Team (Latest Contact Info) Description 04/08/2025 10:00 AM CDT Hospital Encounter [facility] [address] [place] [address] Hernandez Handley MD [address] [place] [address] 11, Mob Crohn's disease of colon without complication (CMS/HCC) 05/28/2025 9:40 AM AUTOMOTIVE PAINTER Appointment [facility] Internal Medicine - [address] [place] [address] Hakeem Connelly MD [address] [place] [address] 06/06/2025 10:00 AM AUTOMOTIVE PAINTER Office Visit [facility] Gastroenterology - [address] [place] [address] Leighton Chaudhary FNP [address] [place] [address] 08/27/2025 10:40 AM CDT Appointment [facility] Internal Medicine - [address] [place] [address] Hakeem Connelly MD [address] [place] [address] 09/30/2025 10:30 AM CDT Office Visit [facility] Heart and Vascular - [place] [address] [phone] Cliff Contreras MD [address] [place] [address] 11/14/2025 10:45 AM CDT Office Visit [facility] Pulmonology and Sleep Med - [address] [place] [address] Tevin Gómez MD [address] [place] [address] documented as of this encounter Visit Diagnoses Diagnosis Backache, unspecified- Primary documented in this encounter Additional Health Concerns Infection Onset Date Last Indicated Resolved Time R/O COVID-19 03/07/2020 03/07/2020 03/08/2020 3:00 PM CDT R/O COVID-19 09/23/2022 09/23/2022 09/23/2022 9:58 AM CDT documented as of this encounter Care Teams Agricultural Produce Washer Relationship Specialty Start Date End Date Hakeem Connelly MD [address] [place] [address] PCP - General 12/27/02 documented as of this encounter
--- OUTSIDE RECORDS SUMMARY | 2025-04-04 11:37 | XMS_ITS | Encounter Summary ---
Author Organization [employer] Address [address] [place] [address] Care Team Providers Care Licensed Insurance Agent Name Role Phone Hakeem Connelly MD Primary Care Provider [phone] Encounter Details Date Type Department Care Team [...] worry about transportation for future doctor visits, sweet pickle maker medication, etc.? No 2024 Housing Stability Answer [...] on file Legal Sex Male 4:59 AM FISHER WEIR Gender Identity Not on file Sexual Orientation [...] Description 04/08/2025 10:00 AM CDT Hospital Encounter [facility] [address] [place] [address] Hernandez Handley MD [address] [place] [address] Mob Crohn's disease of colon without complication ([facility]) 05/28/2025 9:40 AM FISHER WEIR Appointment [facility] Internal Medicine - [address] [place] [address] Hakeem Connelly MD [address] [place] [address] 06/06/2025 10:00 AM FISHER WEIR Office Visit [facility] Gastroenterology - [address] [place] [address] Leighton Chaudhary FNP [address] [place] [address] 08/27/2025 10:40 AM CDT Appointment [facility] Internal Medicine - [address] [place] [address] Hakeem Connelly MD [address] [place] [address] 09/30/2025 10:30 AM CDT Office Visit [facility] Heart and Vascular - [place] [address] [place] [address] Cliff Contreras MD [address] [place] [address] 11/14/2025 10:45 AM CDT Office Visit [facility] Pulmonology and Sleep Med - [address] [place] [address] Tevin Gómez MD [address] [place] [address] documented as of this encounter Visit Diagnoses Not on filedocumented in this encounter Care Teams Licensed Insurance Agent Relationship Specialty Start Date End Date Hakeem Connelly MD [address] [place] [address] PCP - General 12/27/02 documented as of this encounter
--- OUTSIDE RECORDS SUMMARY | 2025-04-04 11:37 | XMS_ITS | Encounter Summary ---
Author Organization [employer] Address [address] [place] [address] Care Team Providers Care Slurry Control Operator Helper Name Role Phone Hakeem Connelly MD Primary Care Provider [phone] Encounter Details Date Type Department Care Team [...] about transportation for future doctor visits, pick and shovel worker medication, etc.? No 2024 Housing Stability Answer [...] on file Legal Sex Male 4:59 AM SENIOR HEALTH CONSULTANT Gender Identity Not on file Sexual Orientation [...] Description 04/08/2025 10:00 AM CDT Hospital Encounter [facility] [address] [place] [address] Hernandez Handley MD [address] [place] [address] Mob Crohn's disease of colon without complication ([facility]) 05/28/2025 9:40 AM SENIOR HEALTH CONSULTANT Appointment [facility] Internal Medicine - [address] [place] [address] Hakeem Connelly MD [address] [place] [address] 06/06/2025 10:00 AM SENIOR HEALTH CONSULTANT Office Visit [facility] Gastroenterology - [address] [place] [address] Leighton Chaudhary FNP [address] [place] [address] 08/27/2025 10:40 AM CDT Appointment [facility] Internal Medicine - [address] [place] [address] Hakeem Connelly MD [address] [place] [address] 09/30/2025 10:30 AM CDT Office Visit [facility] Heart and Vascular - [place] [address] [place] [address] Cliff Contreras MD [address] [place] [address] 11/14/2025 10:45 AM CDT Office Visit [facility] Pulmonology and Sleep Med - [address] [place] [address] Tevin Gómez MD [address] [place] [address] documented as of this encounter Visit Diagnoses Not on filedocumented in this encounter Care Teams Slurry Control Operator Helper Relationship Specialty Start Date End Date Hakeem Connelly MD [address] [place] [address] PCP - General 12/27/02 documented as of this encounter
--- NOTE | 2025-04-04 11:58 | PC.NURSE ---
pt consent to blood product signed and placed in pt's chart.
[2025-04-04 12:36] LABS: Troponin 5 2HR 16.38 ng/L (0-15)
[2025-04-04 12:37] LABS: Troponin 5 2HR Delta -0.62 ABS# (0-10)
--- NOTE | 2025-04-04 12:46 | ECG_ITS ---
[facility] Test Date: 2025-04-04 Pat Name: Abdoul Patel Department: Room: Gender: Male Painter Sign Maintenance: : 1950 Requested By: Yogesh Norris Order Number: [id number] Damon MD: Tong Paul M.D. Measurements Intervals [place] Rate: 59 P: 55 OK: 161 QRS: 13 QRSD: 94 T: 8 QT: 428 QTc: 427 Interpretive Statements SINUS BRADYCARDIA Compared to ECG 04/04/2025 11:08:44 No significant changes Electronically Signed On 04-06-2025 12:10:43 CDT by Tong Paul M.D. [email or web address]
--- NOTE | 2025-04-04 14:07 | PC.NURSE ---
Upon entering room, pt's infusion rate was at 175, titrated up to 200. Pt tolerating well. Voiced no concerns.
--- NOTE | 2025-04-04 19:34 | W.ED.SYNCOPE ---
HPI - Syncope General: Chief Complaint: Syncope Stated Complaint: syncope Time Seen by Provider: 04/04/25 10:42 History of Present Illness: 74 yo M with Hx of Crohn's disease (on Entyvio infusions q8w), coronary artery disease s/p two coronary stents (~2014), and hypertension presents for recurrent syncope. Episodes occurred late November, January 12, and Mar 19; today another episode while walking. Patient reports dizziness prior to events; EMS noted diaphoresis on arrival. Prior episodes often during warm days; today was different. Recent ER visit for chest tightness; EKGs reportedly normal there. Patient states hemoglobin recently was 9, now 7.3 today; colonoscopy on Mar 17 found no bleeding. PCP planning cardiology monitor and hematology evaluation; patient takes two iron supplements daily but ?not responding.? Patient currently on lisinopril 20 mg; metoprolol was discontinued; baby aspirin and sertraline 100 mg. Patient may have vomited lisinopril this morning. Denies current injury; feels chilly. Related Data Home Medications ?Medication ?Instructions ?Recorded ?Confirmed aspirin 81 mg tablet,delayed 81 mg PO DAILY 04/04/25 04/04/25 release (Mi Low Dose Aspirin) atorvastatin 40 mg tablet 40 mg PO DAILY 04/04/25 04/04/25 ferrous sulfate 325 mg (65 mg 325 mg PO BID 04/04/25 04/04/25 iron) tablet (Iron (ferrous sulfate)) lisinopril 10 mg tablet 10 mg PO DAILY 04/04/25 04/04/25 [id number] acid-vit 1 tab PO DAILY 04/04/25 04/04/25 K-lycop 400 mcg-20 mcg-370 mcg tablet (Men's 50 Plus Multivitamin) sertraline 100 mg tablet 100 mg PO DAILY 04/04/25 04/04/25 tamsulosin 0.4 mg capsule 0.4 mg PO DAILY 04/04/25 04/04/25 Allergies Allergy/AdvReac Type Severity Reaction Status Date / Time Penicillins Allergy ALGY-Wheezi Verified 04/04/25 10:40 ng Physical Exam Const: COMMON NORMALS: no acute distress, patient oriented x3 and alert HENMT: COMMON NORMALS: normocephalic and atraumatic HEAD & SCALP: normocephalic and atraumatic Eye: COMMON NORMALS: Equal, round and reactive pupils present, EOMs intact bilaterally and no scleral icterus PUPIL: Yes Equal, round and reactive pupils present Resp: COMMON NORMALS: normal respiratory effort and No retractions Cardio: COMMON NORMALS: regular rate, regular rhythm and No murmurs present (Cardio) RATE: regular rate RHYTHM: regular rhythm GI: COMMON NORMALS: Normal to inspection, nondistended, normoactive bowel sounds present, Soft to palpation and non-tender PALPATION: Yes Soft to palpation Neuro: COMMON NORMALS: patient oriented x3 SENSORIUM/ORIENTATION: Yes alert Skin: COMMON NORMALS: no rashes or lesions noted GENERAL SKIN EXAM: no rashes or lesions noted Course Vital Signs: Vital signs: Vital Signs Temperature 98.0 F 04/04/25 14:59 Pulse Rate 58 L 04/04/25 15:48 Respiratory Rate 15 04/04/25 14:59 Blood Pressure 121/67 04/04/25 15:48 Pulse Oximetry 99 04/04/25 15:48 Oxygen Delivery Me thod Room Air 04/04/25 15:00 MDM - Syncope Medical Decision Making 74 yo M with recurrent syncope, dizziness preceding events, and recent ER visit for chest tightness; history of Crohn?s on Entyvio, coronary artery disease s/p stents, hypertension on lisinopril. Patient reports hemoglobin 9 recently; today 7.3. Colonoscopy on 03/17 reportedly negative for bleeding. BP low at 96/52 with MAP ~66; HR 55?58. No specific physical exam abnormalities documented. EKG at 1108: sinus bradycardia, rate 57, no ST elevation/depression, no T wave inversions, QTc 423, no prior for comparison. Hemoglobin 7.3. CMP pending. No prior records available. Differential diagnosis includes syncope due to hypotension and symptomatic anemia; medication-induced hypotension from lisinopril considered. ACS less likely given normal EKG. Gastrointestinal blood loss considered but recent colonoscopy negative per patient. Plan to hold lisinopril and transfuse 1 unit PRBC given symptomatic anemia and syncope. Fluids discussed but expected limited benefit for oxygen delivery. Monitor BP and symptoms; Patient feels much better after receiving 1 unit of packed red blood cells. Mean arterial pressure increased from 66-85 and he now can get up and walk around the room without any lightheadedness or shortness of breath. He will be discharged in stable and improved condition with plans to either omit or significantly decrease his lisinopril dose based on home testing. We discussed parameters and he shows good understanding. He knows that he is always welcome back in emergency department if needed before outpatient follow-up. Lab Data 04/04/25 10:55 04/04/25 10:55 Radiology Impressions Chest X-Ray 04/04/25 10:43 IMPRESSION: No acute chest abnormality. Laboratory Results WBC 8.53 10^3/uL (3.29-11.43) 04/04/25 10:55 RBC 2.65 10^6/uL (3.85-5.65) L 04/04/25 10:55 Hgb 7.30 g/dL (11.27-16.99) L 04/04/25 10:55 Hct 24.5 % (37-53) L 04/04/25 10:55 MCV 92.5 fl (82-101) 04/04/25 10:55 MCH 27.5 pg (27-33) 04/04/25 10:55 MCHC 29.8 g/dL (30-55) L 04/04/25 10:55 RDW 16.1 % (12.1-15.1) H 04/04/25 10:55 Plt Count 203 10^3/cmm (157-399) 04/04/25 10:55 MPV 8.9 fL (7.4-10.4) 04/04/25 10:55 Neut % (Auto) 73.0 % 04/04/25 10:55 Lymph % (Auto) 14.0 % 04/04/25 10:55 [place] % (Auto) 10.0 % 04/04/25 10:55 Eos % (Auto) 2.3 % 04/04/25 10:55 Baso % (Auto) 0.2 % 04/04/25 10:55 Neut # (Auto) 6.23 10^3/uL (1.8-7.7) 04/04/25 10:55 Lymph # (Auto) 1.2 10^3/uL (0.8-4.8) 04/04/25 10:55 [place] # (Auto) 0.9 10^3/uL (0.2-0.9) 04/04/25 10:55 Eos # (Auto) 0.2 10^3/uL (0.0-0.8) 04/04/25 10:55 Baso # (Auto) 0.0 10^3/uL (0.0-0.1) 04/04/25 10:55 Nucleated RBC % (auto) 0 % 04/04/25 10:55 Nucleated RBCs # 0.0 /100WBC 04/04/25 10:55 Sodium 136 mmol/L (136-145) 04/04/25 10:55 Potassium 4.5 mmol/L (3.5-5.1) 04/04/25 10:55 Chloride 102 mmol/L (98-107) 04/04/25 10:55 Carbon Dioxide 19 mmol/L (22-29) L 04/04/25 10:55 Anion Gap 19.5 (5-19) H 04/04/25 10:55 BUN 25 mg/dL (8-23) H 04/04/25 10:55 Creatinine 1.1 mg/dL (0.7-1.2) 04/04/25 10:55 GFR Calculation Not Reportable 04/04/25 10:55 Glucose 128 mg/dL (65-115) H 04/04/25 10:55 Calculated Osmolality 288 mOsm/kg (285-295) 04/04/25 10:55 Calcium 8.8 mg/dL (8.5-10.5) 04/04/25 10:55 Total Bilirubin 0.3 mg/dL (0.15-1.2) 04/04/25 10:55 AST 16 U/L (0-40) 04/04/25 10:55 ALT 15 U/L (0-41) 04/04/25 10:55 Alkaline Phosphatase 66 U/L (40-130) 04/04/25 10:55 Troponin T Baseline 17 ng/L (0-15) H 04/04/25 10:55 Troponin T 120 Minute 16.38 ng/L (0-15) H 04/04/25 12:12 Delta Troponin T -0.62 ABS# (0-10) L 04/04/25 12:12 Total Protein 5.7 g/dL (6.6-8.7) L 04/04/25 10:55 Albumin 4.0 g/dL (3.5-5.2) 04/04/25 10:55 Globulin 1.7 g/dL (1.3-4.6) 04/04/25 10:55 Blood Type O Negative 04/04/25 11:56 Rho(D) Type Rh negative 04/04/25 11:56 Antibody Screen Negative 04/04/25 11:56 Crossmatch See Detail 04/04/25 11:56 All radiology interpretation(s) finalized by discharge Discharge Plan Discharge Patient Disposition: Home Condition: Stable Prescriptions: No Action atorvastatin 40 mg tablet 40 mg PO DAILY sertraline 100 mg tablet 100 mg PO DAILY aspirin [Mi Low Dose Aspirin] 81 mg Tablet,Delayed Release (Dr/Ec) 81 mg PO DAILY tamsulosin 0.4 mg capsule 0.4 mg PO DAILY ferrous sulfate [Iron (ferrous sulfate)] 325 mg (65 mg iron) Tablet 325 mg PO BID lisinopril 10 mg tablet 10 mg PO DAILY Men's 50 Plus Multivitamin 400-20-370 mcg Tablet 1 tab PO DAILY Discharge Orders: Discharge ED (Routine); Ordered 04/04/25 Ordered By: Francisco Najera Referrals: Joseph Hdz MD [Primary Care Provider, Orthopedics] Discharge Diet: Usual diet Discharge Activity: Increase activity as tolerated Patient Instructions: Hypotension (ED), Patient Portal & Noe Instructions Activity Restrictions/Additional Instructions: Today you received 1 unit of packed red blood cells and your mean arterial blood pressure xiao from 66 to 85. With more hemoglobin and higher blood pressure the chance of a passing out or feeling lightheaded is much less. Please do not take lisinopril until you prove that you are hypertensive and require it. If your blood pressures greater than 160 on the top number I would advise taking half of your prescribed pill rather than the full dose to avoid low blood pressure again. Please follow close with your primary care doctor and also with a academic support assistant oncologist to keep searching for reasons for your low blood levels as it does not appear to be GI related given your recent endoscopy results. Print Language: Slovak Coding Level of Care Code ED Veterinary Physiologist for Derek Pepe
== END 2025-04-04 15:49 | disposition home or self-care (01) ==
PROVIDERS: Family Medicine; Emergency Provider Student in an Organized Health Care Education/Training Program; PCP Orthopaedic Surgery
DX: R55 Syncope and collapse (principal); R42 Dizziness and giddiness; R00.1 Bradycardia, unspecified; I25.10 Atherosclerotic heart disease of native coronary artery without angina pectoris; Z95.5 Presence of coronary angioplasty implant and graft
CPT/HCPCS: 36415; 36430; 71045; 80053; 84484; 85025; 86850; 86900; 86920; 93005; 99285; P9016